=== PATIENT | male | born 1955 | race Caucasian/White ===

== ENCOUNTER 2023-10-26 07:03 | Inpatient (IN) | payer OTHER, SELFPAY ==
--- NOTE | 2023-10-23 14:34 | PTCARENOTE ---
Haydee at 's office was notified of the abnormal portable chest x-ray previously done on 09/25/23.
--- NOTE | 2023-10-24 16:57 | PTCARENOTE ---
Dr García made aware of CXR from 09/25/23, may proceed if medically stable without repeat CXR.
[2023-10-25 07:59] VITALS: BMI 21.3
[2023-10-25 08:44] LABS: Hematocrit 29.1 % (39.0-52.0); Hemoglobin 9.2 g/dL (13.0-18.0); Mean Corp Hgb Conc. 31.6 g/dL (33.0-37.0); Mean Corpuscular Hgb 28.2 pg (27.0-31.0); Mean Corpuscular Volume 89.3 fL (80.0-94.0); Platelet Count 349 10^3/uL (130-400); Red Blood Cell Count 3.26 10^6/uL (4.70-6.10); Red Cell Dist. Width 13.2 % (11.5-14.5); White Blood Cell Count 7.7 10^3/uL (4.8-10.8)
[2023-10-25 08:52] LABS: INR 0.98
[2023-10-25 08:53] LABS: APTT 32.7 Sec (23.4-35.0)
[2023-10-25 09:00] LABS: ALT (SGPT) 18 U/L (0-50); AST (SGOT) 22 U/L (17-59); Albumin 3.5 g/dl (3.5-5.0); Alkaline Phosphatase 96 U/L (38-126); Blood Urea Nitrogen 19 mg/dl (9-20); Calcium 8.7 mg/dl (8.4-10.2); Carbon Dioxide 27 mmol/L (22-30); Chloride 107 mmol/L (98-107); Estimated Creatinine Clearance 70 ml/min; Glucose 89 mg/dl (70-99); Potassium 4.7 mmol/L (3.5-5.1); Sodium 137 mmol/L (135-145); Total Bilirubin 0.3 mg/dl (0.2-1.3); Total Protein 6.3 g/dl (6.3-8.2); eGFR > 60.00
--- NOTE | 2023-10-25 14:06 | PTCARENOTE ---
was notified of hgb 9.2 drawn today; he entered order for type and screen at bedside. Haydee at 's office was also notified of the hgb result.
[2023-10-26] VITALS (16 sets, daily range): BP systolic 111–159; BP diastolic 71–105; BMI 21.3
[2023-10-26] MEDS: NORMOSOL-R 1000 IV (08:30)
[2023-10-26] MEDS: HEPARIN 5000 UNITS SC ×2 (09:29→20:25)
--- NOTE | 2023-10-26 11:36 | W.IMMPOSTOP ---
Surgical Immed Post Op Note
-
Primary Surgeon: Evaristo Crow MD
Assisting Surgeon: Lisa Suarez
Pre-op Diagnosis: Esophageal cancer
Post-op Diagnosis: same
Procedure Performed: Exploratory laparotomy
Anesthesia Type: General
Specimen / Cultures: jejunal nodules
Estimated Blood Loss: 1 cc
Complications: none
Operative Findings: no obvious metastatic disease
[2023-10-26] MEDS: DILAUDID 0.5 MG IV ×2 (12:15→12:54)
--- NOTE | 2023-10-26 13:30 | PTCARENOTE ---
Patient admitted from pacu post exploratory laparotomy and j-tube insertion.Patient with a history of esophageal cancer.He is with significant weight loss as he has not been able to eat.Patient very sleepy upon arrival.Vital signs are
stable.Abdominal dressing is dry and intact.The patient is in his bed with thecall waters.
[2023-10-26] MEDS: MORPHINE SULFATE 2 MG IV ×4 (14:22→22:12)
--- NOTE | 2023-10-26 16:55 | CM ---
Chart reviewed and patient from home with spouse, feeding tube placed, and plan will be to set up tube feeds, bottle caser will await dietary recommendations to send referral. nanny/household manager sent face sheet, and H&P along with surgical procedure
information to [facility].
Plan; To follow up with [facility] for tube feeds for patient at discharge.
[2023-10-26] MEDS: ANCEF 10 IV (17:01)
[2023-10-26] MEDS: FLUSH (NSS) 3 FLUSH IV (17:02)
[2023-10-27] MEDS: MORPHINE SULFATE 2 MG IV ×4 (00:13→08:23)
[2023-10-27] MEDS: ANCEF 10 IV ×2 (02:18→11:14)
[2023-10-27 03:10] VITALS: BP 137/76
[2023-10-27 06:29] LABS: Hemoglobin 8.4 g/dL (13.0-18.0); Mean Corp Hgb Conc. 32.3 g/dL (33.0-37.0); Mean Corpuscular Hgb 28.6 pg (27.0-31.0); Mean Corpuscular Volume 88.4 fL (80.0-94.0); Mean Platelet Volume 10.4 fL (7.4-10.4); Platelet Count 306 10^3/uL (130-400); Red Blood Cell Count 2.94 10^6/uL (4.70-6.10); Red Cell Dist. Width 13.2 % (11.5-14.5); White Blood Cell Count 12.7 10^3/uL (4.8-10.8)
[2023-10-27 06:51] LABS: ALT (SGPT) 16 U/L (0-50); AST (SGOT) 21 U/L (17-59); Albumin 2.9 g/dl (3.5-5.0); Alkaline Phosphatase 82 U/L (38-126); Blood Urea Nitrogen 31 mg/dl (9-20); Calcium 8.5 mg/dl (8.4-10.2); Carbon Dioxide 24 mmol/L (22-30); Chloride 100 mmol/L (98-107); Estimated Creatinine Clearance 70 ml/min; Glucose 131 mg/dl (70-99); Potassium 4.6 mmol/L (3.5-5.1); Sodium 133 mmol/L (135-145); Total Bilirubin 0.4 mg/dl (0.2-1.3); Total Protein 5.7 g/dl (6.3-8.2); eGFR > 60.00
[2023-10-27 07:00] VITALS: BP 127/74
[2023-10-27] MEDS: PEPCID 20 MG IV (08:22)
[2023-10-27] MEDS: NSS (PRESERVATIVE FREE) 8 ML IV (08:22)
[2023-10-27] MEDS: HEPARIN 5000 UNITS SC ×2 (08:28→20:52)
[2023-10-27 11:00] VITALS: BP 127/69
--- NOTE | 2023-10-27 11:59 | W.PN.GENERIC ---
Assessment / Plan
-
S/p Exp Lap and J-tube insertin POD #1
Stable.
The carver hand's input appreciated. The goal is 60CC.
It would be better if he receives intermittent boluses to avoid being tether to the continuous drip. Will ask the carver hand's input.
For now, we will increase his TF by 10cc every six hours.
The patient is anxious to get home
Continue oral intake as tolerate. His oral intake will get worse during radiation therapy due to edema.
OOB and ambulate.
Physician Progress Note
Subjective
c/o incisional pain
Objective
Vital Signs
Temp Pulse Resp BP Pulse Ox
97.8 F 56 14 127/69 99
10/27/23 11:00 10/27/23 11:00 10/27/23 11:00 10/27/23 11:00 10/27/23 11:00
Lab Results
10/27/23 05:01
10/27/23 05:01
Abdomen - soft, ND, incision - CDI
J-tube intact
[2023-10-27] MEDS: TORADOL IV (12:58)
[2023-10-27 15:00] VITALS: BP 130/69
[2023-10-27] MEDS: TORADOL 30 MG IV ×2 (18:06→23:45)
[2023-10-27 23:05] VITALS: BP 138/77
--- NOTE | 2023-10-28 00:12 | PTCARENOTE ---
patient c/o fullness, unfortable bloating. tube feeding currently at 30ml/hr. patient only had one jell-o cup this evening. BS active throughout, abdomen soft but slightly full. per house provider's, Ronald Ham JUNIOR HIGH MATH TEACHER, recommendation; will not
increase tube feed at this time as was expected per order. will cont to monitor closely and reassess increasing tube feed rate later.
--- NOTE | 2023-10-28 04:00 | PTCARENOTE ---
patient more comfortable, no c/o abdominal bloating or nauesa. tube feed rate increased to 40 ml/hr
[2023-10-28] MEDS: TORADOL IV (06:23)
[2023-10-28 07:00] VITALS: BP 176/94
[2023-10-28] MEDS: HEPARIN 5000 UNITS SC ×2 (08:24→20:15)
[2023-10-28] MEDS: PEPCID 20 MG IV (08:27)
[2023-10-28] MEDS: NSS (PRESERVATIVE FREE) 8 ML IV (08:28)
[2023-10-28 09:25] LABS: ALT (SGPT) 14 U/L (0-50); AST (SGOT) 25 U/L (17-59); Albumin 3.3 g/dl (3.5-5.0); Alkaline Phosphatase 84 U/L (38-126); Blood Urea Nitrogen 33 mg/dl (9-20); Calcium 8.3 mg/dl (8.4-10.2); Carbon Dioxide 27 mmol/L (22-30); Chloride 105 mmol/L (98-107); Estimated Creatinine Clearance 80 ml/min; Glucose 104 mg/dl (70-99); Phosphorus 3.4 mg/dl (2.5-4.5); Potassium 4.1 mmol/L (3.5-5.1); Sodium 133 mmol/L (135-145); Total Bilirubin 0.4 mg/dl (0.2-1.3); Total Protein 6.1 g/dl (6.3-8.2); eGFR > 60.00
[2023-10-28] MEDS: TYLENOL ORAL SOLUTION PO ×2 (13:09→20:18)
[2023-10-28] MEDS: COLACE LIQUID 100 MG PO ×2 (13:12→20:15)
[2023-10-28] MEDS: TORADOL 30 MG IV ×2 (13:13→18:35)
[2023-10-28 15:00] VITALS: BP 128/76
[2023-10-28] MEDS: TYLENOL ORAL SOLUTION 650 MG PO ×2 (18:35→22:29)
[2023-10-28] MEDS: MORPHINE SULFATE 2 MG IV (22:27)
[2023-10-28 23:00] VITALS: BP 129/72
[2023-10-29] MEDS: TORADOL 30 MG IV ×2 (00:22→06:14)
[2023-10-29] MEDS: TYLENOL ORAL SOLUTION PO ×3 (03:49→12:18)
[2023-10-29 05:34] LABS: ALT (SGPT) 15 U/L (0-50); AST (SGOT) 29 U/L (17-59); Albumin 3.3 g/dl (3.5-5.0); Alkaline Phosphatase 83 U/L (38-126); Blood Urea Nitrogen 41 mg/dl (9-20); Calcium 8.5 mg/dl (8.4-10.2); Carbon Dioxide 30 mmol/L (22-30); Chloride 103 mmol/L (98-107); Estimated Creatinine Clearance 70 ml/min; Glucose 102 mg/dl (70-99); Magnesium 2.3 mg/dl (1.6-2.3); Phosphorus 4.4 mg/dl (2.5-4.5); Potassium 4.5 mmol/L (3.5-5.1); Sodium 135 mmol/L (135-145); Total Bilirubin 0.3 mg/dl (0.2-1.3); eGFR > 60.00
[2023-10-29 07:31] VITALS: BP 119/77
--- NOTE | 2023-10-29 08:01 | W.PN.GENERIC ---
Addendum entered and electronically signed by Evaristo Crow MD 11/06/23 10:28:
The patient needs aggressive nutritional supports (tube feeds and oral intake) for severe protein calorie malnutrition of chronic illness
Original Note:
Assessment / Plan
-
S/p Exp Lap. insertion of J-tube
Stable
Tolerating TF
DC home today with TF at home (hopefully cycled)
Starting chemo and radiation tomorrow.
Physician Progress Note
Subjective
C/o some incisional pain o/w doing well. Tolerating some po intake and 60 cc of TF.
Objective
Vital Signs
Temp Pulse Resp BP Pulse Ox
98.1 F 90 18 119/77 99
10/29/23 07:31 10/29/23 07:31 10/29/23 07:31 10/29/23 07:31 10/29/23 07:31
Lab Results
10/27/23 05:01
10/29/23 04:29
Abd - soft NT, ND. Incision - DCI
[2023-10-29] MEDS: NSS (PRESERVATIVE FREE) 8 ML IV (08:29)
[2023-10-29] MEDS: PEPCID 20 MG IV (08:30)
[2023-10-29] MEDS: COLACE LIQUID 100 MG PO (08:30)
[2023-10-29] MEDS: HEPARIN 5000 UNITS SC (08:30)
--- NOTE | 2023-10-29 10:45 | CM ---
Addendum entered by Hector Marie 10/29/23 13:01:
Please fax discharge instructions to:
[facility] at [phone]
[facility] at [phone]
Addendum entered by Hector Marie 10/29/23 12:52:
CM confirmed with [facility] team that they will deliver feeding pump and feeding supplies to pt's home today and they cleared pt's discharge from their standpoint.
Discharge order noted. Pt is aware, expressed his agreement with discharge. IMM reviewed placed on chart, pt has a copy.
Please fax discharge instructions to:
[facility] at [phone]
[facility] at [phone]
D/C plan: home with [facility] feeding supply, [facility] and family support. Spouse to transport.
No other discharge needs identified
Original Note:
CM following re: discharge planning.
Reviewed pt's chart, discussed with RN, met with pt.
According to MD pt will be discharged today and pt's first chemo and radiation are scheduled tomorrow. Pt will need nocturnal feed at night.
CM obtained a script and with pt's updated clinical faxed to [facility]. CM spoke to [facility] financial service representative Alma and she confirmed she received all necessary information, requested referral be made to VN and per Alma she feels that pt will have
feeding pump and feeding supplies delivered to pt's home today. Awaiting for final confirmation.
CM discussed with the pt VN options, a list of [facility]N vendors provided and pt preferred [facility]. A referral to [facility] made.
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 Pt reports he spouse will transport home.
D/C plan: home with [facility], [facility] for feeding supply and family support. Spouse to transport at discharge.
CM is awaiting for final confirmation from [facility].
--- NOTE | 2023-10-29 12:06 | W.DS.TRANS ---
DC Summary - Bulk Delivery Driver
-
Discharge Instructions:
Sleep Apnea Risk Low
Discharge Diagnosis/Procedures esophageal cancer
Diet Tube feeding,As tolerated
Activity No strenuous activity
Driving Restrictions No driving for 1 week
Bathing Restrictions OK to Shower
Other Services VN
Instructions:
Stand-Alone Forms:
Changes to Home Medications: No
Discharge Medications:
DC Medications w/original date entered in [facility]
No Meds [No Current Medications] 10/24/23
Home Medication Changes
Pending Results: No
--- NOTE | 2023-10-29 12:14 | PN.CDI ---
CDI
- -
CDI:
Physician Documentation Request
Admit Date: 10/26/23 07:03
Dear Doctor Tristin,
Please review the following and provide your response in the progress notes.
Clinical Indicators:
Hydroelectric Component Machinist, 10/28
#Update due to consult (home TF).
#...Pt admitted s/p exploratory laparotomy and
#...feeding jtube insertion with history of distal esophageal ca,...
#Weight hx listed in 2-2 RD note, with
#...pt having been observed with clavicle protrusion, rib exposure,
#...temporal depression and hollow orbital.
#pt meets ASPEN and AND criteria for severe protein calorie malnutrition of chronic lillness with wt loss, NFPE and decreased intake.
Based on the information, which of the following most accurately represents the patient's nutritional status?
Severe protein calorie malnutrition of chronic illness
Cachexia without malnutrition
Other (please specify)
Benoit Criteria (ACP Hospitalist 2017)
2 or more criteria must be present for either
non severe or severe malnutrition
Note that the criteria differs related to the
presence of an acute or chronic illness
Chronic Illness
Energy Intake Non Severe: <75% for >1 month
Severe: <75% for >1 month
Weight Loss Non Severe: 5% over 1 month
7.5% over 3 months
10% over 6 months
20% over 1 year
Severe: >5% over 1 month
>7.5% over 3 months
>10% over 6 months
>20% over 1 year
Body Fat Non Severe: Mild Loss
Severe: Severe Loss
Muscle Mass Non Severe: Mild Loss
Severe: Severe Loss
Use of terms such as suspected, likely, concern for, or probable (associated with a specific diagnosis that is being evaluated, monitored, or treated as if it exists) are acceptable and can be coded in the inpatient setting, when documented at the
time of discharge.
Thank you,
Cesilia Hall RN BSN CCDS
CDI Specialist
please contact via tiger text
Please use your independent medical judgment in providing your response.
[2023-10-29] MEDS: TORADOL IV (12:18)
--- NOTE | 2023-10-29 12:44 | VNURNOTE ---
Home Health Liaison met with patient and Pam at 1130 to discuss [facility] nurse visits, schedule and homebound status. Patient is agreeable and understands that visits at home will be 2-3 x per week to assess and teach medical management and tube
feeding. Liaison spoke to RN who will review tube feeding procedure prior to discharge home. [facility] contacted and will schedule SN 2/6 in am.
[facility] brochure provided with contact information. Patient is aware that [facility] will contact him for start of care 10/30.
[facility] referral completed in [facility].
has arranged for tube feeding & supplies to be delivered today from [facility].
--- NOTE | 2023-10-29 14:52 | PTCARENOTE ---
Tube feeding teaching provided. Pt and verbalized understanding. All questions answered.
== END 2023-10-29 15:18 | disposition home or self-care (01) | DRG 356 ==
LOC: 2 SOUTH 07:03
PROVIDERS: ADMITTING PHYSICIAN Surgery; FAMILY PHYSICIAN Internal Medicine
PROC: 0WJG0ZZ Inspection of Peritoneal Cavity, Open Approach (ICD-10-PCS; 2023-10-26)
PROC: 07BB0ZX Excision of Mesenteric Lymphatic, Open Approach, Diagnostic (ICD-10-PCS; 2023-10-26)
PROC: 0DHA0UZ Insertion of Feeding Device into Jejunum, Open Approach (ICD-10-PCS; 2023-10-26)
DX: C15.5 Malignant neoplasm of lower third of esophagus (principal); E43 Unspecified severe protein-calorie malnutrition; I10 Essential (primary) hypertension; I45.10 Unspecified right bundle-branch block; Z92.3 Personal history of irradiation; Z68.21 Body mass index [BMI] 21.0-21.9, adult
CPT/HCPCS: 88305; 88332; 36415; 80053; 83735; 84100; 85027; 85610; 85730; 86850; 86900; 86901; 88331; 88341; 88342; 93005; 99406

== ENCOUNTER 2023-11-09 09:02 | Outpatient (RCR) | payer OTHER, SELFPAY ==
[2023-11-02 09:53] VITALS: BP 116/64
[2023-11-02 10:18] VITALS: BP 116/64
[2023-11-02 10:35] VITALS: BP 123/71
[2023-11-02] MEDS: NSS 250 IV ×2 (12:35→13:00)
[2023-11-02 12:36] VITALS: BP 120/81
[2023-11-02] MEDS: DECADRON 50.7999999999999972 MG IV (13:27)
[2023-11-02] MEDS: ALOXI 5 MG IV (13:27)
--- NOTE | 2023-11-02 15:29 | PTCARENOTE ---
Pt arrived with complaints of nausea and dizziness, SEGMENTAL PAVER INSTALLER Nadine notified. Pt tolerated blood transfusion. Nadine Orozco Motorcycle Subassembly Repairer in to assess patient, NSS 250ml x2 given, aloxi 0.25mg IV and decadron 8mg IV given. Pt re-educated on antiemetics and
chemotherapy side effects. Family educated. Dr. Jin notified.
--- NOTE | 2023-11-06 08:29 | NUT.ASMTR ---
[facility] Nutrition Assess/Interview
- Patient History
Visit Type: Initial
Diagnosis / Referral:
Patient Phone: Use [email or web address] instead
Referring Physician:
Referral Source: [facility]
Reason for Referral:
Diagnosis:
ESOPHAGEAL CANCER, WT LOSS
Past Medical History: Esophageal Cancer
48 Hour Diet Recall:
Day 1
Breakfast:
Snack 1:
Lunch:
Snack 2:
Dinner:
Snack 3:
Day 2
Breakfast:
Snack 1:
Lunch:
Snack 2:
Dinner:
Snack 3:
- Anthropometrics
Height in Inches: 67
Height in Centimeters: 170.18
Stated weight in lbs: 125
Stated weight in Kilograms: 56.69
Usual weight in lbs: 145
Usual weight in kilograms: 65.77
BMI: 19.6
Unintentional weight loss in lbs: 20
Weight change happened over the last (in weeks): 26
Energy needs in KCAL: 1994
Protein needs in grams: 86
Fluid requirements in mls: 1 ml/kcal or per MD
- Labs and Medication
No Meds [No Current Medications] 10/24/23
- Patient Nutrition
Food intake less than normal: Little Solid Food, Other (Enteral feeds)
Symptoms: Nausea, Problems Swallowing, Constipation
- Assessment
Patient / Caregiver Interview: Nutrition consulted for newly diagnosed Stage III esophageal cancer, new to TF's �Met with pt to review TF administration and tolerance. Pt reports a 20# wt loss in the past 6 months. Pt was hospitalized for j tube
placement and discharged on 10/31/23; TF orders at discharge:�Jevity 1.5 at 10ml/hr via pump and progress by 20ml every 8-10hours as tolerated to goal rate of 60ml/hr�continuous.�At 60ml/hr tf will provide 1980 calories (99.5% calorie needs), 84 gm
protein (99% protein needs), 1003ml free water. Additional water flush of 985ml in 24 hours to meet 100% fluid needs). Pt reports that he has been administering overnight Jevity 1.5 80 ml/hr x 13 hours providing 1560 kcal meeting 79% calorie needs.
Pt reports that he is nauseous due to the smell of the formula. Pt also states that he has been experiencing panic attacks, dizziness, rapid heart rate and insomnia. �Pt also reports constipation but states that he had a BM yesterday. �Pt continues
to consume via po intake small portions of�hamburger, soft tacos, cinnamon rolls, but could not tolerate water, ice cream, pudding, steak or pork chops. Pt admits that the insomnia is having a significant impact on his state of well being, making it
difficult for him to tolerate chemotherapy side effects. �
Assessment / Nutrition Diagnosis: Inadequate enteral nutrition administration related to treatment and TF side effects as evidenced by pt only meeting 79% of his energy needs via feeding tube.
Nutrition Interventions / Education provided:
RD consulted [place] OPHTHALMOLOGY SURGICAL TECHNICIAN to address anxiety and insomnia. OPHTHALMOLOGY SURGICAL TECHNICIAN prescribed trazadone 50mg nightly; pt can�increase to 100mg nightly after 4 days if not effective. RD reviewed the importance of staying at a 45 degreee angle during TF administration and one
hour post administration. RD confirmed that he is receiving hourly water flushes via feeding pump. RD will follow-up with pt in one week to confirm that pt is meeting 100% TF goal rate and tolerating TF's; given pt's current anxiety and chemotherapy
side effects, RD deemed it appropriate to postpone discussing an increase in TF administration with pt at this meeting.�
[2023-11-08 09:39] LABS: % Basophils 0.4 % (0-2); % Eosinophils 2.1 % (0-6); % Immature Granulocytes 0.6 % (0-0.5); % Lymphocytes 5.7 % (20.5-51.1); % Monocytes 7.4 % (1.7-9.3); % Neutrophils 83.8 % (42.2-75.2); Absolute Eosinophils 0.2 10^3/uL (0-0.7); Absolute Lymphocytes 0.4 10^3/uL (1.2-3.4); Absolute Monocytes 0.5 10^3/uL (0.1-0.6); Mean Corp Hgb Conc. 31.3 g/dL (33.0-37.0); Mean Corpuscular Hgb 28.9 pg (27.0-31.0); Mean Corpuscular Volume 92.4 fL (80.0-94.0); Platelet Count 406 10^3/uL (130-400); Red Blood Cell Count 2.25 10^6/uL (4.70-6.10); Red Cell Dist. Width 15.6 % (11.5-14.5); White Blood Cell Count 7.2 10^3/uL (4.8-10.8)
[2023-11-08 09:40] LABS: Hematocrit 20.8 % (39.0-52.0); Hemoglobin 6.5 g/dL (13.0-18.0)
[2023-11-09] VITALS (7 sets, daily range): BP systolic 97–129; BP diastolic 62–78
== END 2023-11-22 23:59 | disposition home or self-care (01) ==
LOC: OID 09:02
PROVIDERS: ATTENDING PHYSICIAN Internal Medicine Hematology & Oncology; FAMILY PHYSICIAN Internal Medicine
DX: C15.5 Malignant neoplasm of lower third of esophagus (principal)
CPT/HCPCS: 36415; 36430; 85025; 86850; 86900; 86901; 86920; 96361; 96365; 96375; J2469; P9016

== ENCOUNTER → 2023-11-28 11:43 | Outpatient (REF) | payer OTHER, SELFPAY ==
[2023-11-28 13:05] LABS: AST (SGOT) 25 U/L (17-59); Albumin 3.6 g/dl (3.5-5.0); Blood Urea Nitrogen 18 mg/dl (9-20); Carbon Dioxide 28 mmol/L (22-30); Glucose 112 mg/dl (70-99); Total Bilirubin 0.4 mg/dl (0.2-1.3); Total Protein 6.2 g/dl (6.3-8.2); eGFR > 60.00
[2023-11-28 13:21] LABS: ALT (SGPT) 21 U/L (0-50); Alkaline Phosphatase 69 U/L (38-126); Calcium 8.5 mg/dl (8.4-10.2); Chloride 102 mmol/L (98-107); Potassium 4.6 mmol/L (3.5-5.1); Sodium 134 mmol/L (135-145)
== END ==
LOC: OIDL 11:43
PROVIDERS: ATTENDING PHYSICIAN Internal Medicine Hematology & Oncology
DX: C15.5 Malignant neoplasm of lower third of esophagus (principal); Z72.0 Tobacco use; K59.00 Constipation, unspecified
CPT/HCPCS: 80053

== ENCOUNTER → 2023-12-14 10:59 | Outpatient (REF) | payer OTHER, SELFPAY | LOC: HWRAD 10:59 | PROVIDERS: ATTENDING PHYSICIAN Nurse Practitioner Primary Care; FAMILY PHYSICIAN Nurse Practitioner Adult Health | DX: C15.5 Malignant neoplasm of lower third of esophagus (principal); Z72.0 Tobacco use; K59.00 Constipation, unspecified; D50.8 Other iron deficiency anemias | CPT/HCPCS: 71046 ==

== ENCOUNTER → 2024-01-04 07:11 | Outpatient (REF) | payer OTHER, SELFPAY | LOC: MRI 07:11 | PROVIDERS: ATTENDING PHYSICIAN Nurse Practitioner Adult Health; OTHER PHYSICIAN Nurse Practitioner Primary Care | DX: M54.16 Radiculopathy, lumbar region (principal); R20.0 Anesthesia of skin; J45.20 Mild intermittent asthma, uncomplicated; C15.9 Malignant neoplasm of esophagus, unspecified | CPT/HCPCS: 72158 ==

== ENCOUNTER → 2024-01-10 09:09 | Outpatient (REF) | payer OTHER, SELFPAY | LOC: PET 09:09 | PROVIDERS: ATTENDING PHYSICIAN Internal Medicine Hematology & Oncology | DX: C15.5 Malignant neoplasm of lower third of esophagus (principal) | CPT/HCPCS: 78815; A9552 ==

== ENCOUNTER → 2024-01-11 09:10 | Outpatient (REF) | payer OTHER, SELFPAY | LOC: RAD 09:10 | PROVIDERS: ATTENDING PHYSICIAN Nurse Practitioner Adult Health | DX: M51.9 Unspecified thoracic, thoracolumbar and lumbosacral intervertebral disc disorder (principal); C15.9 Malignant neoplasm of esophagus, unspecified; G54.3 Thoracic root disorders, not elsewhere classified | CPT/HCPCS: 78803; A9503 ==

== ENCOUNTER → 2024-01-23 17:14 | Outpatient (REF) | payer OTHER, SELFPAY ==
[2024-01-23 18:08] LABS: Potassium 4.6 mmol/L (3.5-5.1)
== END ==
LOC: REG 17:14
PROVIDERS: ATTENDING PHYSICIAN Nurse Practitioner Adult Health
DX: E78.5 Hyperlipidemia, unspecified (principal)
CPT/HCPCS: 36415; 84132

== ENCOUNTER 2024-01-25 06:15 | Inpatient (IN) | payer OTHER, SELFPAY ==
[2024-01-22 08:38] VITALS: BMI 22.6
[2024-01-22 09:47] LABS: Hematocrit 35.6 % (39.0-52.0); Hemoglobin 11.4 g/dL (13.0-18.0); Mean Corpuscular Hgb 32.2 pg (27.0-31.0); Mean Corpuscular Volume 100.6 fL (80.0-94.0); Platelet Count 187 10^3/uL (130-400); Red Blood Cell Count 3.54 10^6/uL (4.70-6.10); Red Cell Dist. Width 16.8 % (11.5-14.5); White Blood Cell Count 4.6 10^3/uL (4.8-10.8)
[2024-01-22 10:09] LABS: INR 1.01; PT 13.1 Sec (11.4-14.6)
[2024-01-22 10:20] LABS: ALT (SGPT) 68 U/L (0-50); AST (SGOT) 46 U/L (17-59); Albumin 3.9 g/dl (3.5-5.0); Alkaline Phosphatase 90 U/L (38-126); Blood Urea Nitrogen 28 mg/dl (9-20); Calcium 9.4 mg/dl (8.4-10.2); Carbon Dioxide 30 mmol/L (22-30); Chloride 105 mmol/L (98-107); Estimated Creatinine Clearance 87 ml/min; Glucose 94 mg/dl (70-99); Sodium 139 mmol/L (135-145); Total Bilirubin 0.2 mg/dl (0.2-1.3); Total Protein 6.7 g/dl (6.3-8.2); eGFR > 60.00
--- NOTE | 2024-01-22 11:07 | PTCARENOTE ---
Haydee in Dr Crow's office made aware of K 6.0.
--- NOTE | 2024-01-24 09:32 | PTCARENOTE ---
Per medical clearance from 01/22, repeat potassium 4.6.
[2024-01-25] VITALS (15 sets, daily range): BP systolic 124–181; BP diastolic 87–114; BMI 22.6
[2024-01-25] MEDS: HEPARIN 5000 UNITS SC (07:23)
[2024-01-25] MEDS: NORMOSOL-R 1000 IV ×2 (07:38→16:32)
[2024-01-25 13:15] LABS: B.E. - POC -0.5 mmol/L; Glucose - POC 179 mg/dl (65-99); HCO3 - POC 25 mmol/L (21-29); Hematocrit - POC 37 % PCV (42-52); Hemodilution- POC Yes; Hemoglobin Calculated - POC 12.5; Lactate - POC 1.48 mmol/L (0.36-0.75); O2 Saturation %Calculated-POC 99.8 5 (92-96); PCO2 - POC 41 mmHg (35-45); PO2 - POC 218 mmHg (80-100); Potassium - POC 3.8 mmol/L (3.6-5.0); Sodium - POC 141 mmol/L (135-145); pH - POC 7.39 (7.35-7.45)
[2024-01-25] MEDS: DILAUDID 0.25 MG IV ×2 (15:39→15:47)
[2024-01-25] MEDS: DILAUDID 0.5 MG IV ×2 (16:00→20:01)
--- NOTE | 2024-01-25 16:37 | HPS.HSE ---
Family Physician
-
Family Physician: Pavithra Thornton
Chief Complaint
-
Status post esophagectomy
History of Present Illness
Patient is a 68 years old male with esophageal adenocarcinoma, well-differentiated and diagnosed August 2023.
Esophageal adenocarcinoma clinically and radiologically limited to esophagus
Patient underwent PEG tube placement and chemoradiation treatment.
Patient underwent uneventful esophagectomy today with estimated blood loss 150 mL.
Extubated successfully with stable respiratory and hemodynamic status.
NG tube being replaced to surpass anastomosis
Admit to ICU.
Medical History
Past Medical History
Past Medical History: Reports Cancer (Esophageal carcinoma) and HTN
Past Surgical History: Reports Other (PEG tube placement)
Social History
Tobacco: Former Smoker
Family History
Family History: Not pertinent
Allergies / Home Medications
Allergies reflects when Allergies were last updated in Comic Reply.
Home Medications with original date entered in Comic Reply
Allergy/Medication List:
Allergies
Allergy/AdvReac Type Severity Reaction Status Date / Time
No Known Allergies Allergy Verified 01/25/24 07:19
Home Medications
No Meds [No Current Medications] 01/22/24
Review of Systems
-
Unable to obtain full review of systems at this time due to: Other (Somnolent recovering from anesthesia.)
Physical Exam
Vital Signs
Vital Signs
Temp Pulse Resp BP Pulse Ox
97.9 F 89 17 154/113 92
01/25/24 16:00 01/25/24 16:00 01/25/24 16:00 01/25/24 16:00 01/25/24 16:00
Physical Exam
General: Well Developed, Well Nourished and No Apparent Distress
HEENT: NormoCephalic, Moist mucous membranes and Atraumatic
Respiratory: Clear
Cardiac: S1/S2 and Regular Rhythm; No Murmur or Rub
GI: Soft, Non Tender, Non Distended, Normal Bowel Sounds and Other (NG tube in place); No Organomegaly
Rectal: Deferred by Provider
Musculoskeletal: No Clubbing, No Cyanosis and No Edema
Skin: No Rash
Neuro: Other (Somnolent recovering from anesthesia)
Laboratory Results
-
01/22/24 08:23
01/22/24 08:23
Laboratory Results
PT 13.1 Sec (11.4-14.6) 01/22/24 08:
INR 1.01 01/22/24 08:
APTT 30.0 Sec (23.4-35.0) 01/22/24 08:23
Total Bilirubin 0.2 mg/dl (0.2-1.3) 01/22/24 08:23
AST 46 U/L (17-59) 01/22/24 08:23
ALT 68 U/L (0-50) H 01/22/24 08:23
Alkaline Phosphatase 90 U/L (38-126) 01/22/24 08:23
Impression/Plan
-
IMPRESSION:
Status post esophagectomy.
Esophageal adenocarcinoma, well-differentiated, clinically and radiologically limited to esophagus.
Status post chemoradiation treatment.
PEG tube in place.
Tobacco use disorder
Hypertension by history not on medications prior to presentation
RBBB
Dyslipidemia
PLAN:
Admit to ICU for close monitoring
NG tube in place to bypass anastomosis. Orders not to manipulate.
Aspiration precautions.
Nutrition team consult for PEG tube feeding initiation.
Monitor electrolytes.
Monitor CBC.
Adjust analgesic regimen with anesthesia recovery
DVT prophylaxis: Mechanical
Full code
--- NOTE | 2024-01-25 16:42 | CON.INTV ---
Consultation
Consultation Request
Date/Time Consultation Requested: 01/25/2024
Date/Time Consultation Performed: 01/25/2024
Requesting Provider: Dr. Carolina
Performing Provider: Dr. Jeremiah Corbin
Reason for Consultation: Status post
Medical History
-
History of Present Illness:
68-year-old man with distal esophageal adenocarcinoma who has recently finish neoadjuvant chemotherapy. Underwent esophagectomy by Dr. Crow on 01/25/2024.
Records reviewed, patient completed radiation therapy in November 2023.
She is currently in the intensive care unit.
Extubated.
Past Medical History
Past Medical History: Other (See assessment and plan section)
Social History
Tobacco: Non-smoker
Alcohol: None
Drug: None
Family History
Family History: Reviewed & Not Pertinent
Allergies / Home Medications
Allergies
Allergy/AdvReac Type Severity Reaction Status Date / Time
No Known Allergies Allergy Verified 01/25/24 07:19
Home Medications
�Medication �Instructions �Recorded �Confirmed �Last Taken �Type
No Meds [No Current Medications] 01/22/24 01/25/24 Unknown History
Review of Systems
-
History Source: Patient
All other systems: Negative unless noted
Vitals / Labs / Diagnostic Testing
Vital Signs
Temp Pulse Resp BP Pulse Ox
97.9 F 89 17 154/113 92
01/25/24 16:00 01/25/24 16:00 01/25/24 16:00 01/25/24 16:00 01/25/24 16:00
Lab Data
01/22/24 08:23
01/22/24 08:23
Diagnostic Testing:
Physical Exam
-
HEENT: Normocephalic
Cardiovascular: S1/S2
Respiratory: Clear and Non-Labored Respirations
GI: Soft, Non Distended and Other (NG tube in place)
Neurology: Other (Somnolent, arousable. Following commands.)
General: Respiratory Distress (n)
Assessment
-
Status post transhiatal esophagectomy
Conditions present prior admission:
Esophageal cancer status post radiation and neoadjuvant chemotherapy
GERD
Hypertension
Incomplete RBBB
Plan recommendations:
Postoperative ICU care
Will check CBC and BMP
Start gentle IV fluids
-
Analgesia with narcotics as needed-monitor respiratory status closely
bedrest for now.
-
Monitor hemodynamics.
-
N.p.o.-defer to surgery
NG tube in place, only to be managed by surgery.
-
DVT prophylaxis with SCDs, pharmacological prophylaxis when cleared by surgery.
--- NOTE | 2024-01-25 16:48 | PTCARENOTE ---
Dr Crow aware of CXR resuts and that there is no drainage from the NGT
--- NOTE | 2024-01-25 17:04 | W.IMMPOSTOP ---
Surgical Immed Post Op Note
-
Primary Surgeon: Evaristo Crow MD
Pre-op Diagnosis: Esophageal Cancer
Post-op Diagnosis: Esophageal Cancer
Procedure Performed: Transhiatal esophagectomy
Anesthesia Type: GET
Specimen / Cultures: Esophagus with proximal stomach
Estimated Blood Loss: 150 cc
Complications: None
Operative Findings: Distal esophageal tumor
[2024-01-25] MEDS: D5/0.45%NSS with KCL 10 MEQ 1000 IV (17:09)
--- NOTE | 2024-01-25 17:17 | PTCARENOTE ---
Pt admitted to ICU bed 3358 from PACU. Pt lethargic. Follows simple commands and answers questions at times. Unable to stay awake for admission questions at this time. States, 'It hurts' but falls asleep quickly and respiratory rate 8-10 while
asleep therefore PRN Dilaudid not given.
Sinus rhythm with BBB. Left radial A-line intact.
97% on 3L NC. Lungs CTA.
Abdomen soft/tender. NGT to LIS. J-tube present.
Gonzalez draining clear yellow
Left neck and abdominal dressing C/D/I
[2024-01-25 17:22] LABS: % Basophils 0.2 % (0-2); % Eosinophils 0.1 % (0-6); % Immature Granulocytes 0.2 % (0-0.5); % Lymphocytes 2.2 % (20.5-51.1); % Monocytes 5.6 % (1.7-9.3); % Neutrophils 91.7 % (42.2-75.2); Absolute Lymphocytes 0.2 10^3/uL (1.2-3.4); Absolute Monocytes 0.6 10^3/uL (0.1-0.6); Absolute Neutrophils 9.3 10^3/uL (1.4-6.5); Hematocrit 32.8 % (39.0-52.0); Hemoglobin 11.2 g/dL (13.0-18.0); Mean Corp Hgb Conc. 34.1 g/dL (33.0-37.0); Mean Corpuscular Hgb 32.4 pg (27.0-31.0); Mean Corpuscular Volume 94.8 fL (80.0-94.0); Mean Platelet Volume 10.7 fL (7.4-10.4); Nucleated Red Blood Cells % 0 % (-); Platelet Count 191 10^3/uL (130-400); Red Blood Cell Count 3.46 10^6/uL (4.70-6.10); Red Cell Dist. Width 15.9 % (11.5-14.5); White Blood Cell Count 10.1 10^3/uL (4.8-10.8)
[2024-01-25 18:26] LABS: Blood Urea Nitrogen 24 mg/dl (9-20); Calcium 8.4 mg/dl (8.4-10.2); Carbon Dioxide 22 mmol/L (22-30); Chloride 103 mmol/L (98-107); Estimated Creatinine Clearance 76 ml/min; Glucose 186 mg/dl (70-99); Magnesium 2.1 mg/dl (1.6-2.3); Potassium 4.4 mmol/L (3.5-5.1); Sodium 136 mmol/L (135-145); eGFR > 60.00
[2024-01-25] MEDS: OFIRMEV 100 IV (18:38)
[2024-01-25] MEDS: VALIUM INJECTION 2 MG IV ×2 (19:00→21:26)
[2024-01-25] MEDS: APRESOLINE 10 MG IV (20:16)
--- NOTE | 2024-01-25 20:45 | PTCARENOTE ---
Rec'd care of patient at 1910. Patient oob in chair. Alert and oriented. Afib with BBB and PVCs on tele monitor. Trace anasarca. +1 edema in b/l LE. Palpable pulses. Pulse ox 99-100% on 4L nc. Lung sounds diminished in b/l base. Moist, productive
cough. Utilizing yankauer. +BS. No BM. Will attempt to use bedside commode prior to going to bed. Voiding frequent, small amounts in urinal. Scrotal edema present. Sacral foam c/d/i. VSS. No complaints. RIJ triple lumen cath capped.
[2024-01-25] MEDS: ZOFRAN 4 MG IV (21:18)
[2024-01-25] MEDS: LOPRESSOR 5 MG IV (22:13)
--- NOTE | 2024-01-25 22:30 | PTCARENOTE ---
Rec'd care of patient at 190. Patient in bed. Left neck mae drain dressing intact. NGT to low intermittent suction. Small amount of bloody output. Patient c/o back and abdominal pain. ABP 180-190's/90-100's. WINDER FIXER at bedside prior to shift change
to assess patient. Orders placed for 2mg Valium and 0.5 mg Dilaudid (see MAR). Patient experiencing temporary relief. BP remaining elevated despite pain under better control. Order for 10mg Hydralazine IV placed and administered at 2015. Around
2114, patient increasingly anxious and restless in bed. C/o abdominal discomfort and nausea. BP and HR elevated. Zofran and additional 2mg Valium administered. Emotional support and reassurance provided. Once patient resting comfortably and pain
controlled, BP 170/90's HR 90's. Order for 5mg IV Lopressor obtained. VSS. Full assessment and care as charted on worklist.
[2024-01-25] MEDS: DILAUDID 1 MG IV (23:12)
[2024-01-26] VITALS (14 sets, daily range): BP systolic 98–156; BP diastolic 67–99; BMI 22.9
--- NOTE | 2024-01-26 00:31 | PTCARENOTE ---
Patient resting comfortably s/p 1mg IV Dilaudid at 2312. VSS. No changes in assessment.
[2024-01-26] MEDS: OFIRMEV 100 IV ×3 (01:37→15:35)
[2024-01-26] MEDS: APRESOLINE 10 MG IV (01:37)
[2024-01-26] MEDS: D5/0.45%NSS with KCL 10 MEQ 1000 IV (02:56)
[2024-01-26] MEDS: DILAUDID 1 MG IV ×6 (03:02→20:03)
[2024-01-26 03:41] LABS: % Basophils 0.2 % (0-2); % Immature Granulocytes 0.3 % (0-0.5); % Lymphocytes 2.5 % (20.5-51.1); % Monocytes 7.7 % (1.7-9.3); % Neutrophils 89.3 % (42.2-75.2); Absolute Lymphocytes 0.3 10^3/uL (1.2-3.4); Absolute Monocytes 0.8 10^3/uL (0.1-0.6); Absolute Neutrophils 9.8 10^3/uL (1.4-6.5); Hematocrit 31.2 % (39.0-52.0); Hemoglobin 10.7 g/dL (13.0-18.0); Mean Corp Hgb Conc. 34.3 g/dL (33.0-37.0); Mean Corpuscular Hgb 32.2 pg (27.0-31.0); Mean Platelet Volume 10.9 fL (7.4-10.4); Nucleated Red Blood Cells % 0 % (-); Platelet Count 189 10^3/uL (130-400); Red Blood Cell Count 3.32 10^6/uL (4.70-6.10); Red Cell Dist. Width 15.9 % (11.5-14.5); White Blood Cell Count 10.9 10^3/uL (4.8-10.8)
--- NOTE | 2024-01-26 03:41 | PTCARENOTE ---
Pt reassessed. C/o abdominal pain. PRN 1mg Dilaudid administered. No other changes. VSS. AM labs sent.
[2024-01-26 03:58] LABS: APTT 33.2 Sec (23.4-35.0); INR 1.09; PT 13.9 Sec (11.4-14.6)
[2024-01-26 04:09] LABS: Blood Urea Nitrogen 22 mg/dl (9-20); Calcium 8.3 mg/dl (8.4-10.2); Carbon Dioxide 24 mmol/L (22-30); Chloride 103 mmol/L (98-107); Estimated Creatinine Clearance 101 ml/min; Glucose 181 mg/dl (70-99); Phosphorus 3.5 mg/dl (2.5-4.5); Potassium 4.6 mmol/L (3.5-5.1); Sodium 132 mmol/L (135-145); eGFR > 60.00
[2024-01-26] MEDS: ZOFRAN 4 MG IV ×2 (08:18→17:00)
--- NOTE | 2024-01-26 08:21 | W.PN.HOSP.TC ---
Today's Communication/Plan
-
see A/P
Assessment / Plan
Assessment / Plan
HPI: 68 years old male with esophageal adenocarcinoma, well-differentiated and diagnosed August 2023.
Esophageal adenocarcinoma clinically and radiologically limited to esophagus
Patient underwent PEG tube placement and chemoradiation treatment.
Patient underwent uneventful esophagectomy on 01/24 with estimated blood loss 150 mL.
Extubated successfully with stable respiratory and hemodynamic status.
NG tube being replaced to surpass anastomosis
Admit to ICU for close monitoring post op.
Hospitalist service asked to admit due to ICU level of care.
IMPRESSION:
Esophageal adenocarcinoma, well-differentiated, clinically and radiologically limited to esophagus.
Recently finished neoadjuvant chemotherapy. Underwent esophagectomy by Dr. Crow on 01/25/[address]
Tobacco use disorder
Hypertension by history not on medications prior to presentation
RBBB
Dyslipidemia
PLAN:
Admit to ICU for close monitoring
NG tube in place to bypass anastomosis. Orders not to manipulate.
Aspiration precautions.
Nutrition team consult for PEG tube feeding initiation. Will start with empiric Jevity 1.5 at 10 cc/hr and goal at 30 cc/hr
Monitor electrolytes.
Monitor CBC.
Adjust analgesic regimen with anesthesia recovery, currently on IV Dilaudid PRN
DVT prophylaxis: Mechanical
Full code
LISA Crow
Anticipated Discharge: > 48 hours
Subjective/Interval History
-
Date of Service: January 26, 2024
Objective Data
-
Labs:
Laboratory Results
01/26/24
03:16
WBC 10.9 H
Hgb 10.7 L
Hct 31.2 L
Plt Count 189
PT 13.9
INR 1.09
APTT 33.2
Sodium 132 L
Potassium 4.6
Chloride 103
Carbon Dioxide 24
BUN 22 H
Creatinine 0.6 L
Glucose 181 H
Calcium 8.3 L
Vital Signs:
Vital Signs
Temp Pulse Resp BP Pulse Ox
36.7 C 92 9 120/86 100
01/26/24 07:15 01/26/24 06:30 01/26/24 06:30 01/26/24 06:00 01/26/24 06:30
I&O
01/25/24 01/26/24 01/27/24
06:59 06:59 06:59
Intake Total 1400 / 1400
Output Total 1550 / 1550
Balance -150 / -150
Review of Systems
-
Constitutional: Reports Other (abdominal pain)
Physical Exam
-
General: Well Developed, Conversant and Appears Chronically Ill
HEENT: Normocephalic, Atraumatic, Nose Appears Normal, Ears Appear Normal and Oxygen (2L NC)
Respiratory: Clear to Auscultation and Non Labored Respirations; Negative Accessory Resp Muscle Use
Cardiac: Regular Rhythm and S1/S2
GI: Tender, Peg Tube and Other (in wound dressing)
Skin: Warm and Dry
Neuro: Awake and Alert
Psych: Calm and Intact Judgement/Insight
Data Reviewed
-
Labs: Labs Reviewed by me
--- NOTE | 2024-01-26 09:23 | W.PN.INTV ---
Today's Communication / Plan
Recommendations
Will discuss with pharmacy Dilaudid REFERRAL COORDINATOR
Gentle IV fluids
Continue monitor daily electrolytes and hemoglobin
Assessment
-
Status post transhiatal esophagectomy
Conditions present prior admission:
Esophageal cancer status post radiation and neoadjuvant chemotherapy
GERD
Hypertension
Incomplete RBBB
Plan recommendations:
Postoperative day 1
Continue complaining of significant amount of postoperative pain despite of frequent Dilaudid and IV Tylenol.
Will discuss with pharmacy whether he Dilaudid REFERRAL COORDINATOR will be helpful.
-
Monitor respiratory status closely.
Complaining of coughing and phlegm production-he quit smoking 3 months ago.
Not bronchospastic on exam
Not requiring oxygen
Continue with analgesia
Hold on nebulizers
-
Bedrest
Incentive spirometry when able, unable to perform due to pain.
-
Hemodynamically stable
Discontinue arterial line
-
N.p.o.-defer to surgery
NG tube in place, only to be managed by surgery.
G-tube in place, defer when to start tube feedings to surgery.
-
DVT prophylaxis with SCDs, pharmacological prophylaxis when cleared by surgery.
-
Subjective Dataa
Subjective Data
Date of Service:
Date of Service: January 26, 2024
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
Review of Systems
General: Pain
Cardiopulmonary: Dyspnea (n)
GI: Abdominal Pain (n) and Nausea (n)
Neuro: Headache (n)
Objective Data
Data Reviewed
Vital Signs / I&O / Oxygen:
Vital Signs
Temp Pulse Resp BP Pulse Ox
98.0 F 92 9 120/86 100
01/26/24 07:15 01/26/24 06:30 01/26/24 06:30 01/26/24 06:00 01/26/24 06:30
Intake and Output
01/25/24 01/26/24 01/27/24
06:59 06:59 06:59
Intake Total 1400 / 1400
Output Total 1550 / 1550
Balance -150 / -150
SaO2 100
Nasal Cannula flow liters per 2
minute
Physical Exam
General: Respiratory Distress (n) and Comfortable
HEENT: Normocephalic
Cardiovascular: S1-S2
Respiratory: Clear and Non-Labored Respirations
GI: Soft, Non Distended and Other (NG tube in place)
Neurology: Awake, Alert and Oriented
Skin: Warm
Labs/Micro/Reports
Lab Data
01/26/24 03:16
01/26/24 03:16
Laboratory Results
01/26/24
03:16
PT 13.9
INR 1.09
APTT 33.2
--- NOTE | 2024-01-26 10:25 | W.PN.GENERIC ---
Assessment / Plan
-
S/p transhiatal esophagectomy POD #1
Stable.
Start tube feeds
Continue strict NPO and NGT
Will start Toradol for better pain control
OOB to chair, Encourage pulmonary toilet. Needs IS
High risk for atrial fibrillation
Will observe him in the ICU another day, possible transfer tomorrow
Await path.
Physician Progress Note
Subjective
C/o incisional pain.
Objective
Vital Signs
Temp Pulse Resp BP Pulse Ox
98.0 F 92 9 120/86 100
01/26/24 07:15 01/26/24 06:30 01/26/24 06:30 01/26/24 06:00 01/26/24 06:30
Lab Results
01/26/24 03:16
01/26/24 03:16
Abdomen - soft, ND. Dsg - intact
Cor - RRR
Pul - dec bilat
[2024-01-26] MEDS: TORADOL 15 MG IV ×3 (11:05→23:28)
--- NOTE | 2024-01-26 12:47 | PTCARENOTE ---
Issues with pain control this am. New order for IV Toradol. Med given. Pt appears to be resting comfortably at this time. Pt given hug me pillow.
Sinus rhythm. BP stable via a-line
Respirations shallow. Lungs diminished. Encouraged cough and DB with [id number]. Instructed on I/S
Zofran given this am for c/o nausea. NGT to LIS. scant bloody output in tubing. Tube feeds started via J-tube. +BS. Pt denies flatus.
Gonzalez draining clear yellow urine.
abdominal and neck dressings intact
--- NOTE | 2024-01-26 13:37 | OR.RPT ---
Operative Report
Operative Report
Patient Name: Toñito Mccray
Date of : 1955
Date of Operation: January 25, 2024
Preoperative Diagnosis: Esophagus Ca lower third - C155
Postoperative Diagnosis: Same
Surgeon: Evaristo Crow M.D.
Operation: Transhiatal Esophagectomy - 37987
Anesthesia: GET
Estimated Blood Loss: 150 cc
Drains: Cary drain in the neck
Specimen: Esophagus with the proximal stomach
Complications: None
Procedure:
The patient was taken to the operating room and placed in the usual supine position. After adequate endotracheal anesthesia was established, the patient was placed in the right decubitus position with the left chest up. The patient was prepped and
draped in the usual sterile fashion. The patient was taken to the operating room and placed in the supine position. After induction of satisfactory general endotracheal anesthesia, the skin of the neck, chest, and abdomen was prepared and draped.
The peritoneal cavity was entered through a supraumbilical midline incision.
The triangular ligament of the liver was divided with cautery, and the left lobe of the liver was padded and retracted to the right. An exploration of the abdomen was performed and found no evidence of metastatic disease. After identifying the
course of the right gastroepiploic artery and beginning at the midpoint of the greater curvature of the stomach, the greater omentum was from the stomach to the level of the pylorus using Ligasure. The left gastroepiploic artery and short
gastric vessels were then divided in the same manner. The spleen was preserved without injuring it.
The peritoneum overlying the esophageal hiatus was incised. The gastrohepatic omentum was incised. There was no accessory hepatic artery coming off the left gastric artery; thus, the left gastric vein and artery were divided at the level of the
origin of the left gastric artery to ensure adequate lymph node procurement.
A generous Elba maneuver was then performed. A 2-cm long pyloromyotomy was carried out, beginning 1.5 cm on the stomach, extending through the pylorus, and onto the duodenum for 0.5 cm. First, 2 [id number] 3-0 silk stay sutures were placed on
the superior and inferior anterior border of the pylorus. Then, the myotomy was performed using the cutting current of a needle-tipped electrocautery, and a fine-tipped mosquito clamp was used to dissect the gastric and duodenal muscle away from the
underlying submucosa. The lumen of the duodenum was entered, so it was converted to pyloroplasty. Two 3-0 stay sutures were placed, one superior and the other inferior, at the level of the pylorus). The longitudinal incision was stretched into a
gunnar shape by applying traction on the stay sutures. The incision was then closed transversely with a #4-0 PDS in a running fashion.
Attention was then turned to the mobilization of the esophagus. With downward traction on the Cary drain encircling the esophagogastric junction, the diaphragmatic hiatus was progressively dilated until a hand could be inserted into the posterior
mediastinum through the diaphragmatic hiatus. Dissection of the distal 10 cm of the esophagus was carried out sharply using the electrocautery and a long right-angled clamp and then more superiorly keeping the fingers closely applied to the
esophagus. Accessible paraesophageal, left gastric, and celiac axis lymph nodes and soft tissue were mobilized for resection with the esophagus and proximal stomach. The dissection along the lower third of the esophagus was carried to the level of
the micky.
Attention was then turned to the neck. Through an oblique left cervical incision paralleling the anterior border of the sternocleidomastoid muscle, the platysma muscle was divided, the carotid sheath and its contents retracted laterally, the trachea
and thyroid gland medially, and the prevertebral fascia identified. Care was taken throughout this and subsequent portions of the cervical dissection to avoid direct pressure on the recurrent laryngeal nerve in the tracheoesophageal groove. The
cervical esophagus was encircled with a 1-inch Ciera drain, and with gentle upward traction on this drain, blunt mobilization of the upper thoracic esophagus from the superior mediastinum was carried out. Working upward from the diaphragmatic
hiatus and downward through the cervical incision, mobilization of the esophagus was completed using a combination of finger dissection and dissection with a curved sponge stick. Dissection was carried out along the posterior aspect of the
esophagus, followed by dissection of the lateral and anterior attachments. Once the entire intrathoracic esophagus was free from the mediastinum, the upper esophagus was delivered into the neck wound, the nasogastric tube pulled back into the
oropharynx, and the esophagus divided with a PAUL surgical stapler. The stomach and esophagus were delivered out of the abdominal wound.
The esophagus and proximal stomach were then from the remaining stomach by applying a PAUL surgical stapler several times, beginning along the lesser curvature of the stomach 4-5 cm distal to the esophagogastric junction. The thoracic
esophagus and proximal stomach were then removed and sent to the pathology department.
The stomach was then gently manipulated through the hiatus and advanced manually upward through the posterior mediastinum until the gastric fundus was visualized at the base of the neck wound and drawn into the field using a Houston clamp. Care was
taken to be certain that the stomach was not twisted within the mediastinum.
The abdomen was then inspected for hemostasis. The diaphragmatic hiatus was narrowed to 3 fingerbreadths with interrupted 1-0 silk sutures. Care was taken to include the parietal peritoneum. The jejunostomy tube was brought out through a separate
left upper quadrant incision and tacked to the adjacent peritoneum with interrupted 3-0 silk sutures. The tube was secured to the skin with a 3-0 Prolene suture. The abdomen was closed using running 0 PDS. The skin was closed with christy.
After the abdomen was closed, cervical esophagogastric anastomosis was performed. The stomach was pulled out of the neck, a 1.5 cm vertical anterior gastrotomy was made, and the stapled end of the cervical esophagus was amputated. A gfqj-wl-plca
anastomosis between the cervical esophagus and gastric fundus was performed using the ENDO-30 PAUL stapler.
Two outer layer 4-0 Vicryl Lembert sutures were placed laterally to the stapler between the esophagus and stomach. After the firing of the stapler, 2 more lateral suspension sutures of 4-0 Vicryl were placed between the cervical esophagus and the
stomach on either side of the anastomosis. The nasogastric tube was then readvanced from the oropharynx to approximately 40-45 cm at the nares to ensure tip placement in the intrathoracic conduit under direct vision. The anterior esophagotomy and
gastrotomy were closed in 2 layers, first with running and then with interrupted 4-0 PDS sutures.
The neck was irrigated, and then a �-inch Cary drain was placed next to the anastomosis. The muscle fascia was loosely approximated with interrupted 3-0 Vicryl, and the skin edges were approximated with running 4-0 nylon. Dry sterile dressings
were applied to all incisions. The final instruments, needles, and sponge counts were correct. The patient was extubated and transferred to recovery.
--- NOTE | 2024-01-26 17:58 | PTCARENOTE ---
Pt OOB in chair for 1.5hr. Increased pain with movement along with nausea and diaphoresis. PRN Dilaudid and Zofran given. Pt resting in bed at this time.
--- NOTE | 2024-01-26 21:00 | PTCARENOTE ---
Rec'd care of patient at 1900. Family at bedside. AAOx3. NSR on tele monitor. Rate in the 80-90's. HR occasionally up to 100's with movement in the bed. Patient weaned to RA on day shift. Pulse ox 88%. 2L nc placed back on. Hypo BS. TFs infusing
through j-tube. NGT to low intermittent suction. Left neck dressing intact; drainage unchanged. Midline Aquacell dressing c/d/i. No drainage. Gonzalez draining yellow urine. 30-50 cc's an hour. Pain better controlled with scheduled Toradol and PRN
Dilaudid.
--- NOTE | 2024-01-26 23:50 | PTCARENOTE ---
Patient resting comfortably. Only complaint is phlegm in back of throat. VSS. Increasing TFs towards goal rate.
[2024-01-27] VITALS (15 sets, daily range): BP systolic 106–164; BP diastolic 65–96; O2SAT 95; BMI 22.5
[2024-01-27] MEDS: DILAUDID 1 MG IV ×5 (02:02→22:40)
[2024-01-27] MEDS: TORADOL 15 MG IV ×4 (04:26→22:41)
--- NOTE | 2024-01-27 04:39 | PTCARENOTE ---
Patient having intermittent episodes of pain with associated body tremors throughout the night. Resolved with Toradol and Dilaudid (see MAR). VSS. Patient resting comfortably between episodes. All other assessments unchanged.
[2024-01-27 04:59] LABS: Hematocrit 28.6 % (39.0-52.0); Hemoglobin 9.6 g/dL (13.0-18.0); Mean Corp Hgb Conc. 33.6 g/dL (33.0-37.0); Mean Corpuscular Hgb 32.3 pg (27.0-31.0); Mean Corpuscular Volume 96.3 fL (80.0-94.0); Mean Platelet Volume 10.5 fL (7.4-10.4); Platelet Count 182 10^3/uL (130-400); Red Blood Cell Count 2.97 10^6/uL (4.70-6.10); Red Cell Dist. Width 16.3 % (11.5-14.5); White Blood Cell Count 8.9 10^3/uL (4.8-10.8)
[2024-01-27 05:26] LABS: Blood Urea Nitrogen 26 mg/dl (9-20); Calcium 8.4 mg/dl (8.4-10.2); Carbon Dioxide 27 mmol/L (22-30); Chloride 103 mmol/L (98-107); Estimated Creatinine Clearance 86 ml/min; Glucose 102 mg/dl (70-99); Magnesium 2.1 mg/dl (1.6-2.3); Potassium 4.6 mmol/L (3.5-5.1); Sodium 132 mmol/L (135-145); eGFR > 60.00
--- NOTE | 2024-01-27 09:48 | W.PN.HOSP.TC ---
Today's Communication/Plan
-
see A/P
Assessment / Plan
Assessment / Plan
HPI: 68 years old male with esophageal adenocarcinoma, well-differentiated and diagnosed August 2023.
Esophageal adenocarcinoma clinically and radiologically limited to esophagus
Patient underwent PEG tube placement and chemoradiation treatment.
Patient underwent uneventful esophagectomy on 01/24 with estimated blood loss 150 mL.
Extubated successfully with stable respiratory and hemodynamic status.
NG tube being replaced to surpass anastomosis
Admit to ICU for close monitoring post op.
Hospitalist service asked to admit due to ICU level of care.
IMPRESSION:
Esophageal adenocarcinoma, well-differentiated, clinically and radiologically limited to esophagus.
Recently finished neoadjuvant chemotherapy. Underwent esophagectomy by Dr. Crow on 01/25/[address]
Tobacco use disorder
Hypertension by history not on medications prior to presentation
RBBB
Dyslipidemia
PLAN:
Admit to ICU for close monitoring
NG tube in place to bypass anastomosis. Orders not to manipulate.
Aspiration precautions.
Nutrition team consulted for PEG tube feeding initiation.
Started Jevity 1.5 and advance to goal rate
Monitor electrolytes.
Monitor CBC.
Cont current IV Dilaudid PRN for pain
DVT prophylaxis: Mechanical
Full code
LISA Crow
Anticipated Discharge: 24 - 48 hours
Subjective/Interval History
-
Date of Service: January 27, 2024
Objective Data
-
Labs:
Laboratory Results
01/27/24
04:33
WBC 8.9
Hgb 9.6 L
Hct 28.6 L
Plt Count 182
Sodium 132 L
Potassium 4.6
Chloride 103
Carbon Dioxide 27
BUN 26 H
Creatinine 0.7
Glucose 102 H
Calcium 8.4
Vital Signs:
Vital Signs
Temp Pulse Resp BP Pulse Ox
37.1 C 82 14 110/81 97
01/27/24 07:30 01/27/24 06:00 01/27/24 06:00 01/27/24 06:00 01/27/24 06:00
I&O
01/26/24 01/27/24 01/28/24
06:59 06:59 06:59
Intake Total 1400 / 1500 1550 / 1550
Output Total 1550 / 1600 1045 / 1045
Balance -150 / -100 505 / 505
Review of Systems
-
Constitutional: Reports Other (abdominal pain)
Physical Exam
-
General: Well Developed, Conversant and Appears Chronically Ill
HEENT: Normocephalic, Atraumatic, Nose Appears Normal, Ears Appear Normal and Oxygen (2L NC)
Respiratory: Clear to Auscultation and Non Labored Respirations; Negative Accessory Resp Muscle Use
Cardiac: Regular Rhythm and S1/S2
GI: Tender, Peg Tube and Other (in wound dressing)
Skin: Warm and Dry
Neuro: Awake and Alert
Psych: Calm and Intact Judgement/Insight
Data Reviewed
-
Labs: Labs Reviewed by me
--- NOTE | 2024-01-27 09:57 | W.PN.INTV ---
Today's Communication / Plan
Recommendations
Continue pain control
Incentive spirometry
Tube feedings
Increase activity as able
Daily labs
Hopefully transfer out of the ICU later today.
Assessment
-
Status post transhiatal esophagectomy
Conditions present prior admission:
Esophageal cancer status post radiation and neoadjuvant chemotherapy
GERD
Hypertension
Incomplete RBBB
Former smoker-quit 90 days ago-chronic bronchitic symptoms-possible COPD
Plan recommendations:
Postoperative day 2
-
Pain still present but better controlled
Continue Dilaudid
Continue Toradol
Continue to monitor respiratory status closely.
-
Complaining of coughing and phlegm production-he quit smoking 3 months ago.
Not bronchospastic on exam
Not requiring oxygen
Hold on nebulizers
Incentive spirometry encourage
-
Increase activity as able.
-
Hemodynamically stable
Hypertensive
Hydralazine as needed, does not take any medication at home.
-
N.p.o.-defer to surgery
NG tube in place, only to be managed by surgery.
G-tube in place, tolerating tube feedings.
-
DVT prophylaxis with SCDs, pharmacological prophylaxis when cleared by surgery.
-
Hopefully transfer out of the ICU to [facility] later today.
If transfer out of critical care team will sign off
Please call pulmonary if any respiratory issues arise.
Would recommend outpatient pulmonary follow-up for COPD evaluation in the future.
Subjective Dataa
Subjective Data
Date of Service:
Date of Service: January 27, 2024
Chief Complaint: Skilled Labor Follow Up (Status post esophagectomy)
Subjective:
Complaining of coughing up phlegm production.
Has been going on for several weeks after he stopped smoking.
Pain is better controlled.
Denies shortness of breath or wheezing.
Review of Systems
General: Fever (n)
Cardiopulmonary: Dyspnea (none at rest), Cough, Sputum Production and Wheezing (n)
GI: Abdominal Pain (n) and Nausea (n)
Objective Data
Data Reviewed
Vital Signs / I&O / Oxygen:
Vital Signs
Temp Pulse Resp BP Pulse Ox
98.7 F 82 14 110/81 97
01/27/24 07:30 01/27/24 06:00 01/27/24 06:00 01/27/24 06:00 01/27/24 06:00
Intake and Output
01/26/24 01/27/24 01/28/24
06:59 06:59 06:59
Intake Total 1400 / 1500 1550 / 1550
Output Total 1550 / 1600 1045 / 1045
Balance -150 / -100 505 / 505
SaO2 97
Nasal Cannula flow liters per 2
minute
Physical Exam
General: Respiratory Distress (n) and Comfortable
HEENT: Normocephalic
Cardiovascular: S1-S2
Respiratory: Clear and Non-Labored Respirations
GI: Soft, Non Distended and Other (NG tube in place)
Neurology: Awake, Alert and Oriented
Skin: Warm
Labs/Micro/Reports
Lab Data
01/27/24 04:33
01/27/24 04:33
[2024-01-27] MEDS: MIRALAX 17 GRAMS PO (11:01)
[2024-01-27] MEDS: SENOKOT-S 1 TABLET PO (11:01)
--- NOTE | 2024-01-27 11:11 | PTCARENOTE ---
Pt reports increased abdominal pain. Noted to be more distended. Pt reports issues with constipation in the past. notified. New orders received.
Attempted to remove O2. SpO2 88% on room air. SpO2 95-7% on 2L at this time. Encouraged I/S.
Pt reports high anxiety about getting out of bed and moving his bowels d/t increased pain. Education provided about need for early mobility. Notified pt he will be assisted out of bed to chair later today. Reassured him that pain meds and
assistance would be provided. Encouraged pt to frequently reposition in bed. All other assessments unchanged.
--- NOTE | 2024-01-27 11:34 | W.PN.GENERIC ---
Assessment / Plan
-
S/p Transhiatal esophagectomy POD #2
Stable
dec Hg noted - perioperative blood loss. observe
OOB and ambulated with NGT clamped.
Make sure NGT to reconnect to intermittent suction when in room
Start MOM via G-tube for constipation
Await path.
CAP IVF
Physician Progress Note
Subjective
C/o incisional pain
Objective
Vital Signs
Temp Pulse Resp BP Pulse Ox
98.7 F 102 17 151/96 96
01/27/24 07:30 01/27/24 10:45 01/27/24 10:45 01/27/24 10:00 01/27/24 10:45
Lab Results
01/27/24 04:33
01/27/24 04:33
Abdomen - some distention. Dsg intact
Pul - dec BS bilat
Cor - RRR
[2024-01-27] MEDS: MILK OF MAGNESIA 30 ML PO (12:53)
[2024-01-27] MEDS: MORPHINE SULFATE 1 MG IV ×2 (14:17→23:15)
[2024-01-27] MEDS: ZOFRAN 4 MG IV (14:17)
--- NOTE | 2024-01-27 18:10 | PTCARENOTE ---
Patient voiding 175cc of straw colored urine in to urinal. Will continue to monitor.
[2024-01-28] MEDS: DILAUDID 1 MG IV ×7 (01:42→22:55)
[2024-01-28] MEDS: TORADOL 15 MG IV ×4 (04:47→22:55)
[2024-01-28 06:18] LABS: Hematocrit 29.1 % (39.0-52.0); Hemoglobin 9.3 g/dL (13.0-18.0); Mean Corpuscular Hgb 31.7 pg (27.0-31.0); Mean Corpuscular Volume 99.3 fL (80.0-94.0); Mean Platelet Volume 11.1 fL (7.4-10.4); Platelet Count 187 10^3/uL (130-400); Red Blood Cell Count 2.93 10^6/uL (4.70-6.10); White Blood Cell Count 8.1 10^3/uL (4.8-10.8)
[2024-01-28 06:52] LABS: Blood Urea Nitrogen 29 mg/dl (9-20); Carbon Dioxide 30 mmol/L (22-30); Chloride 100 mmol/L (98-107); Estimated Creatinine Clearance 86 ml/min; Glucose 102 mg/dl (70-99); Potassium 5.8 mmol/L (3.5-5.1); Sodium 137 mmol/L (135-145); eGFR > 60.00
[2024-01-28 07:28] VITALS: BP 120/82
[2024-01-28 07:53] LABS: Blood Urea Nitrogen 29 mg/dl (9-20); Calcium 8.4 mg/dl (8.4-10.2); Carbon Dioxide 31 mmol/L (22-30); Chloride 100 mmol/L (98-107); Estimated Creatinine Clearance 86 ml/min; Glucose 111 mg/dl (70-99); Potassium 4.9 mmol/L (3.5-5.1); Sodium 133 mmol/L (135-145); eGFR > 60.00
--- NOTE | 2024-01-28 11:11 | CM ---
Patient seen bedside.
IA completed.
S/P esophagectomy 01/25/24.
Patient lives with spouse in a split level home with 6 steps to enter and 5 steps between floors.
Patient assists home at home.
Per patient his also has cancer.
Patient ambulates without assistive devices.
Patient has a PEG tube and was getting tube feeds from [facility].
Patient unsure who was ordering tube feeds.
Per [facility], if tube feeds remain the same they will need a script to reflect that to resume services, updated labs and updated clinicals.
Patient had [facility] in the past, but not current per patient, he stated he has a friend help and his .
Patient open to [facility]. Referral via [facility].
PCP: Dr Thornton
Pharmacy: [facility]
Plan: home with [facility]
[2024-01-28 11:42] VITALS: BP 145/88; PULSE 105; O2SAT 97
[2024-01-28] MEDS: MORPHINE SULFATE 1 MG IV ×2 (11:42→19:26)
[2024-01-28 15:48] VITALS: BP 159/81
--- NOTE | 2024-01-28 17:00 | PTCARENOTE ---
Addendum entered by Ela Olson RN 01/28/24 20:26:
Dr. Crow notified of no BM and ABD distention. TF rate slowed to 40ml/hr. MOM administered. Pain medications given, see NOV.
Original Note:
Patient OOB to chair for 2+ hours today. Pain managed with scheduled Toradol, and PRN Morphine and Dilaudid. Patient maintained NPO with R nare NG tube to low intermittent suction. TF running at 50ml/hr with 25ml flush. Patient reports passing gas
but has not had a BM. ABD appears round and distended. Dressing to L neck Pnerose drain CDI. Midline ABD aquacel CDI. Patient voiding in urinal. VSS. at bedside.
[2024-01-28] MEDS: MILK OF MAGNESIA 30 ML PO (19:40)
[2024-01-28 22:46] VITALS: BP 160/90
[2024-01-29] MEDS: DILAUDID 1 MG IV ×5 (02:02→21:57)
[2024-01-29] MEDS: TORADOL 15 MG IV ×2 (04:56→10:08)
[2024-01-29 07:00] VITALS: BP 149/96
[2024-01-29] MEDS: MIRALAX 17 GRAMS PO (10:07)
--- NOTE | 2024-01-29 11:24 | W.PN.GENERIC ---
Assessment / Plan
-
S/p Transhiatal esophagectomy POD #4
Stable
Will increase Toradol to 30 mg
Continue NGT/NPO/TF
Will plan to dc NGT tomorrow
OOB and ambulate. PT to see pt
Will change prn meds for constipation to schd
Await path
Dec Hg due to periop blood loss. No evidence of active bleeding
Encourage pulm toilet
Physician Progress Note
Subjective
Still with significant incisional pain. ALso c/o constipation. Had a small BM today. Also had some dry heaves
Objective
Vital Signs
Temp Pulse Resp BP Pulse Ox
98.7 F 95 18 149/96 99
01/29/24 07:00 01/29/24 07:00 01/29/24 07:00 01/29/24 07:00 01/29/24 09:00
Lab Results
01/28/24 04:46
01/28/24 07:20
Abd - soft but some distention. Incision - CDI
Pul - dec bilater
Cor - RRR
[2024-01-29 11:48] VITALS: BP 138/8; PULSE 105; O2SAT 91
--- NOTE | 2024-01-29 14:24 | CM ---
Patient seen bedside with spouse.
patient continues with IV anbx and NGT.
TF via PEG tube.
Per spouse she administers TF at home.
Marti was the nurse who followed patient with [facility] and they requested to have her back. Liaison updated.
Plan: home with [facility] and [facility] for TF: [facility] will need a RX: resume enteral feeds as prior to hospitalization. They will also need updated labs, and clinicals faxed to [phone].
[2024-01-29 15:00] VITALS: BP 165/99
[2024-01-29] MEDS: TORADOL 30 MG IV ×2 (15:07→21:58)
--- NOTE | 2024-01-29 15:35 | PTCARENOTE ---
01/28- Patient's states he is dizzy at rest, and T=100.3. She states, 'this is what happens if he gets dehydrated. He needs fluids.' Educated patient and spouse on dehydration, self-care and critical signs of dehydration. Advised I will ask
Physician. Patient and Spouse verbalized understanding. They decline offer for tylenol for fever. Notified Physician. Continue to monitor.
--- NOTE | 2024-01-29 16:55 | W.PN.HOSP.TC ---
Today's Communication/Plan
-
Postoperative care
Assessment / Plan
Assessment / Plan
HPI: 68 years old male with esophageal adenocarcinoma, well-differentiated and diagnosed August 2023.
Esophageal adenocarcinoma clinically and radiologically limited to esophagus
Patient underwent PEG tube placement and chemoradiation treatment.
Patient underwent uneventful esophagectomy on 01/24 with estimated blood loss 150 mL.
Extubated successfully with stable respiratory and hemodynamic status.
NG tube being replaced to surpass anastomosis
IMPRESSION:
Esophageal adenocarcinoma, well-differentiated, clinically and radiologically limited to esophagus.
Status post esophagectomy on 01/24 with estimated blood loss 150 mL.
Recently finished neoadjuvant chemotherapy. Underwent esophagectomy by Dr. Crow on 01/25/[address]
Tobacco use disorder
Hypertension by history not on medications prior to presentation
RBBB
Dyslipidemia
PLAN:
NG tube in place to bypass anastomosis. Orders not to manipulate.
Aspiration precautions.
Plan is for removal of NG tube on 01/29 and clear liquid diet
Continue PEG tube feeding with Jevity 1.5 and advance to goal rate
Monitor electrolytes.
Monitor CBC.
Analgesic regimen has been adjusted
DVT prophylaxis: Mechanical
Full code
LISA Crow
Anticipated Discharge: 24 - 48 hours
Subjective/Interval History
-
Date of Service: January 29, 2024
Objective Data
-
Vital Signs:
Vital Signs
Temp Pulse Resp BP Pulse Ox
100.2 F 84 18 165/99 94
01/29/24 15:00 01/29/24 15:00 01/29/24 15:00 01/29/24 15:00 01/29/24 15:00
I&O
01/28/24 01/29/24 01/30/24
06:59 06:59 06:59
Intake Total 375 / 375 1710 / 1710
Output Total 660 / 660 450 / 450
Balance -285 / -285 1260 / 1260
Physical Exam
-
General: Well Developed and No Apparent Distress
HEENT: Normocephalic, Atraumatic and Moist Mucous Membranes
Respiratory: Clear to Auscultation
Cardiac: Regular Rhythm and S1/S2; Negative Murmur, Rub or Gallop
GI: Soft, Nontender, Nondistended, Normal Bowel Sounds, Peg Tube and Other (NG tube is in place.); Negative Organomegaly
Rectal: Deferred by Provider
Musculoskeletal: No Clubbing, No Cyanosis and No Edema
Skin: Negative Rash
Neuro: Nonfocal/Grossly Intact
[2024-01-29] MEDS: SENOKOT-S 1 TABLET TUBE (21:56)
[2024-01-29 22:57] VITALS: BP 157/96
[2024-01-29] MEDS: TYLENOL 650 MG PO (23:08)
[2024-01-30] MEDS: DILAUDID 1 MG IV ×5 (01:30→18:11)
[2024-01-30] MEDS: TORADOL 30 MG IV ×4 (04:13→22:08)
--- NOTE | 2024-01-30 04:59 | W.PN.UPDATE ---
Update Note
Progress Note Update
RN notified ABSTRACT WRITER, Patient with temp of 101.7 and had fever of 100 during day time. Denies any fever chills, cough. noticed dark urine and addressed the surgical wound is packed with dressing. Tylenol PO was given and temp of 97 noted in AM. RN
mentioned urine looks darker therefore will order an UA to culture and lactic acid
[2024-01-30 05:59] LABS: Hemoglobin 9.1 g/dL (13.0-18.0); Mean Corp Hgb Conc. 33.7 g/dL (33.0-37.0); Mean Corpuscular Hgb 31.5 pg (27.0-31.0); Mean Corpuscular Volume 93.4 fL (80.0-94.0); Mean Platelet Volume 10.1 fL (7.4-10.4); Platelet Count 219 10^3/uL (130-400); Red Blood Cell Count 2.89 10^6/uL (4.70-6.10); Red Cell Dist. Width 15.4 % (11.5-14.5); White Blood Cell Count 9.4 10^3/uL (4.8-10.8)
[2024-01-30 06:03] LABS: Lactic Acid 0.7 mmol/L (0.7-2.0)
[2024-01-30 06:24] LABS: ALT (SGPT) 41 U/L (0-50); AST (SGOT) 39 U/L (17-59); Alkaline Phosphatase 183 U/L (38-126); Blood Urea Nitrogen 30 mg/dl (9-20); Calcium 8.6 mg/dl (8.4-10.2); Carbon Dioxide 27 mmol/L (22-30); Chloride 101 mmol/L (98-107); Estimated Creatinine Clearance 101 ml/min; Glucose 126 mg/dl (70-99); Potassium 4.5 mmol/L (3.5-5.1); Sodium 135 mmol/L (135-145); Total Bilirubin 0.6 mg/dl (0.2-1.3); Total Protein 5.7 g/dl (6.3-8.2); eGFR > 60.00
[2024-01-30 06:44] LABS: Urine Albumin Trace (Neg - Trace); Urine Bilirubin Negative (Negative); Urine Character Clear (Clear); Urine Color Yellow; Urine Glucose Negative (Negative); Urine Ketone Trace (Negative); Urine Leukocyte Negative (Negative); Urine Nitrite Negative (Negative); Urine Occult Blood Negative (Negative); Urine Urobilinogen 1+ (Neg - 1+)
[2024-01-30 07:00] VITALS: BP 151/95
[2024-01-30] MEDS: MIRALAX 17 GRAMS PO (08:15)
[2024-01-30] MEDS: SENOKOT-S 1 TABLET TUBE ×2 (08:15→22:07)
--- NOTE | 2024-01-30 10:45 | PTCARENOTE ---
5/8- patient states he will pull out his own NGT if the Physician does not come up to do it. He states feeling anxious, dizzy, weak and drowsy. He states he feels that way and starts spiking low-grade temps when he is dehydrated. Therapeutic
conversation de-escalated patient. Advised on the potential consequences of pulling his own tube. Advised I will immediately notify physician and ask about his plan of care moving forward. He verbalized understanding. Was able to de-escalate
patient at this time. TT'ed Physician.
--- NOTE | 2024-01-30 12:33 | CM ---
Patient seen bedside.
Patient appeared dyspneic when speaking, when asked if he was short of breath he stated he was a little. Nursing updated.
Patient with NGT. TF via Peg Tube.
Continues on IV anbx.
Plan: home with [facility] when stable and [facility] for tube feeds.
--- NOTE | 2024-01-30 12:47 | PN.CDI ---
CDI
- -
CDI:
Physician Documentation Request
Admit Date: 01/25/24 06:15
Dear Doctor Tristin,
Patient admitted with esophageal cancer s/p transhiatal esophagectomy.
Na levels documented below:
Patient received IV fluids.
Laboratory Tests
01/26/24 01/27/24 01/28/24
03:16 04:33 07:20
Sodium 132 L 132 L 133 L
Based on the above, please clarify in the progress notes, the appropriate diagnosis, if significant, that supports the above abnormalities and additional evaluation, monitoring and/or treatment rendered:
Hyponatremia
Insignificant abnormal lab findings
Other
Use of terms such as suspected, likely, concern for, or probable (associated with a specific diagnosis that is being evaluated, monitored, or treated as if it exists) are acceptable and can be coded in the inpatient setting, when documented at the
time of discharge.
Thank you,
Christie SUÁREZ,RN,CCDS
CDI Specialist
Available via [place] text
Please use your independent medical judgment in providing your response.
--- NOTE | 2024-01-30 12:58 | PN.CDI ---
CDI
- -
CDI:
Physician Documentation Request
Admit Date: 01/25/24 06:15
Dear Doctor Tristin,
Patient admitted with esophageal cancer s/p transhiatal esophagectomy.
5/7 PN, 'Dec Hg due to periop blood loss.'
Hgb levels documented below:
Laboratory Tests
01/22/24 01/25/24 01/26/24
08:23 17:05 03:16
Hgb 11.4 L 11.2 L 10.7 L
01/27/24 01/28/24 01/30/24
04:33 04:46 05:44
Hgb 9.6 L 9.3 L 9.1 L
Based on the above, please clarify, in your progress note, which of the following is the most likely diagnosis you are evaluating,
monitoring and/or treating?
Acute blood loss anemia
Acute blood loss anemia with baseline chronic anemia
Insignificant abnormal lab findings
Other
Use of terms such as suspected, likely, concern for, or probable (associated with a specific diagnosis that is being evaluated, monitored, or treated as if it exists) are acceptable and can be coded in the inpatient setting, when documented at the
time of discharge.
Thank you,
Christie SUÁREZ,RN,CCDS
CDI Specialist
Available via [place] text
Please use your independent medical judgment in providing your response.
[2024-01-30 15:00] VITALS: BP 137/81
[2024-01-30 15:27] LABS: Procalcitonin 0.23 ng/ml (0.0-0.25)
--- NOTE | 2024-01-30 15:53 | W.PN.HOSP.TC ---
Today's Communication/Plan
-
Single episode of fever noted on 01/29.
Nontoxic-appearing.
Chest x-ray with bilateral atelectasis.
Normal procalcitonin level.
Blood cultures pending
Monitor closely, would be low threshold for empiric antibiotics for nosocomial/aspiration pneumonia if recurrent fever.
Incentive spirometry.
Increase activity.
Reduce hydromorphone dose to every 6 hours as needed
Gentle hydration given mildly elevated BUN
Assessment / Plan
Assessment / Plan
HPI: 68 years old male with esophageal adenocarcinoma, well-differentiated and diagnosed August 2023.
Esophageal adenocarcinoma clinically and radiologically limited to esophagus
Patient underwent PEG tube placement and chemoradiation treatment.
Patient underwent uneventful esophagectomy on 01/24 with estimated blood loss 150 mL.
Extubated successfully with stable respiratory and hemodynamic status.
NG tube being replaced to surpass anastomosis
IMPRESSION:
Esophageal adenocarcinoma, well-differentiated, clinically and radiologically limited to esophagus.
Status post esophagectomy on 01/24 with estimated blood loss 150 mL.
Recently finished neoadjuvant chemotherapy. Underwent esophagectomy by Dr. Crow on 01/25/[address]
Tobacco use disorder
Hypertension by history not on medications prior to presentation
RBBB
Dyslipidemia
PLAN:
NG tube in place to bypass anastomosis. Orders not to manipulate.
Aspiration precautions.
Plan is for removal of NG tube on 01/29 and clear liquid diet
Continue PEG tube feeding with Jevity 1.5 and advance to goal rate
Monitor electrolytes.
Monitor CBC.
Analgesic regimen has been adjusted
Single episode of fever noted on 01/29.
Nontoxic-appearing.
Chest x-ray with bilateral atelectasis.
Normal procalcitonin level.
Blood cultures pending
Monitor closely, would be low threshold for empiric antibiotics for nosocomial/aspiration pneumonia if recurrent fever.
Incentive spirometry.
Increase activity.
Reduce narcotic dose
DVT prophylaxis: Mechanical
Full code
LISA Crow
Anticipated Discharge: > 48 hours
Subjective/Interval History
-
Date of Service: January 30, 2024
Objective Data
-
Labs:
Laboratory Results
01/30/24
05:44
WBC 9.4
Hgb 9.1 L
Hct 27.0 L
Plt Count 219
Sodium 135
Potassium 4.5
Chloride 101
Carbon Dioxide 27
BUN 30 H
Creatinine 0.6 L
Glucose 126 H
Calcium 8.6
Total Bilirubin 0.6
AST 39
ALT 41
Alkaline Phosphatase 183 H
Vital Signs:
Vital Signs
Temp Pulse Resp BP Pulse Ox
98.0 F 93 18 151/95 98
01/30/24 07:00 01/30/24 07:00 01/30/24 07:00 01/30/24 07:00 01/30/24 08:15
I&O
01/29/24 01/30/24 01/31/24
06:59 06:59 06:59
Intake Total 1710 / 1710 960 / 960
Output Total 450 / 450 1250 / 1250
Balance 1260 / 1260 -290 / -290
Physical Exam
-
General: Well Developed and No Apparent Distress
HEENT: Normocephalic, Atraumatic and Moist Mucous Membranes
Respiratory: Clear to Auscultation
Cardiac: Regular Rhythm and S1/S2; Negative Murmur, Rub or Gallop
GI: Soft, Nontender, Nondistended and Normal Bowel Sounds; Negative Organomegaly
Rectal: Deferred by Provider
Musculoskeletal: No Clubbing, No Cyanosis and No Edema
Skin: Negative Rash
Neuro: Nonfocal/Grossly Intact
[2024-01-30] MEDS: NSS 1000 IV (16:00)
--- NOTE | 2024-01-30 17:26 | W.PN.GENERIC ---
Assessment / Plan
-
S/p Transhiatal esophagectomy POD # 5
Stable.
No more episodes of fevers since last pm and WBC normal
most likely atelectasis
NGT dc'd and the bedside test for the anastomotic leak with juice shows no obvious leak
Barium swallow tomorrow for a definitive test.
Keep pt NPO
He needs to ambulate more. Encourage pulm toilet
Hope to start diet tomorrow if the barium study is negative
Await path.
Low Hg and sodium are expected after this surgery without any clinically significance. They should improve as he improves
Physician Progress Note
Subjective
Feeling better. No N/V. Had multiple BMs
Objective
Vital Signs
Temp Pulse Resp BP Pulse Ox
98.3 F 88 18 137/81 95
01/30/24 15:00 01/30/24 15:00 01/30/24 15:00 01/30/24 15:00 01/30/24 15:00
Lab Results
01/30/24 05:44
01/30/24 05:44
Abd - Soft NT. Incision CDI
Neck - incision CDI. Drain intact
Pul - dec BS
Cor - RRR
[2024-01-30 23:42] VITALS: BP 149/91
[2024-01-31] MEDS: DILAUDID 1 MG IV ×5 (01:10→23:31)
[2024-01-31] MEDS: TORADOL 30 MG IV ×4 (04:34→22:08)
[2024-01-31 06:25] LABS: % Basophils 0.3 % (0-2); % Eosinophils 1.9 % (0-6); % Immature Granulocytes 0.4 % (0-0.5); % Lymphocytes 5.1 % (20.5-51.1); % Monocytes 17.9 % (1.7-9.3); % Neutrophils 74.4 % (42.2-75.2); Absolute Eosinophils 0.2 10^3/uL (0-0.7); Absolute Lymphocytes 0.5 10^3/uL (1.2-3.4); Absolute Monocytes 1.8 10^3/uL (0.1-0.6); Absolute Neutrophils 7.3 10^3/uL (1.4-6.5); Hematocrit 28.1 % (39.0-52.0); Hemoglobin 9.3 g/dL (13.0-18.0); Mean Corp Hgb Conc. 33.1 g/dL (33.0-37.0); Mean Corpuscular Hgb 32.3 pg (27.0-31.0); Mean Corpuscular Volume 97.6 fL (80.0-94.0); Mean Platelet Volume 11.2 fL (7.4-10.4); Nucleated Red Blood Cells % 0 % (-); Platelet Count 241 10^3/uL (130-400); Red Blood Cell Count 2.88 10^6/uL (4.70-6.10); Red Cell Dist. Width 15.5 % (11.5-14.5); White Blood Cell Count 9.8 10^3/uL (4.8-10.8)
[2024-01-31 07:00] VITALS: BP 151/99
[2024-01-31 07:04] LABS: ALT (SGPT) 49 U/L (0-50); AST (SGOT) 41 U/L (17-59); Albumin 3.1 g/dl (3.5-5.0); Alkaline Phosphatase 221 U/L (38-126); Blood Urea Nitrogen 28 mg/dl (9-20); Calcium 8.5 mg/dl (8.4-10.2); Carbon Dioxide 29 mmol/L (22-30); Chloride 102 mmol/L (98-107); Estimated Creatinine Clearance 86 ml/min; Glucose 110 mg/dl (70-99); Potassium 5.3 mmol/L (3.5-5.1); Sodium 136 mmol/L (135-145); Total Bilirubin 0.4 mg/dl (0.2-1.3); Total Protein 5.9 g/dl (6.3-8.2); eGFR > 60.00
[2024-01-31 08:02] LABS: COVID-19 Antigen Negative (Negative)
[2024-01-31] MEDS: MIRALAX 17 GRAMS PO (08:15)
[2024-01-31] MEDS: SENOKOT-S 1 TABLET TUBE ×2 (08:15→20:06)
--- NOTE | 2024-01-31 14:16 | CM ---
Patient seen bedside.
NGT discontinued.
UGI ordered.
PT/OT recommending home care.
TF continued via PEG.
Plan: home with [facility]N and resumption of Care for [facility]. (they will need script, see prior notes)
[2024-01-31 15:00] VITALS: BP 138/88
--- NOTE | 2024-01-31 16:31 | W.PN.HOSP.TC ---
Today's Communication/Plan
-
Postoperative care.
Monitor for recurrent fever.
Increase activity.
Assessment / Plan
Assessment / Plan
HPI: 68 years old male with esophageal adenocarcinoma, well-differentiated and diagnosed August 2023.
Esophageal adenocarcinoma clinically and radiologically limited to esophagus
Patient underwent PEG tube placement and chemoradiation treatment.
Patient underwent uneventful esophagectomy on 01/24 with estimated blood loss 150 mL.
Extubated successfully with stable respiratory and hemodynamic status.
NG tube being replaced to surpass anastomosis
IMPRESSION:
Esophageal adenocarcinoma, well-differentiated, clinically and radiologically limited to esophagus.
Status post esophagectomy on 01/24 with estimated blood loss 150 mL.
Recently finished neoadjuvant chemotherapy. Underwent esophagectomy by Dr. Crow on 01/25/[address]
Tobacco use disorder
Hypertension by history not on medications prior to presentation
RBBB
Dyslipidemia
PLAN:
NG tube removed on 01/29
Diet to be advanced as per surgery pending esophageal x-ray.
Continue PEG tube feeding with Jevity 1.5 and advance to goal rate
Monitor electrolytes.
Monitor CBC.
Analgesic regimen has been adjusted
Single episode of fever noted on 01/29.
Nontoxic-appearing.
Chest x-ray with bilateral atelectasis.
Normal procalcitonin level.
Blood cultures pending
Monitor closely, would be low threshold for empiric antibiotics for nosocomial/aspiration pneumonia if recurrent fever.
Incentive spirometry.
Increase activity.
Reduce narcotic dose
DVT prophylaxis: Mechanical
Full code
LISA Crow
Anticipated Discharge: 24 - 48 hours
Subjective/Interval History
-
Date of Service: January 31, 2024
Objective Data
-
Labs:
Laboratory Results
01/31/24
04:32
WBC 9.8
Hgb 9.3 L
Hct 28.1 L
Plt Count 241
Sodium 136
Potassium 5.3 H
Chloride 102
Carbon Dioxide 29
BUN 28 H
Creatinine 0.7
Glucose 110 H
Calcium 8.5
Total Bilirubin 0.4
AST 41
ALT 49
Alkaline Phosphatase 221 H
Vital Signs:
Vital Signs
Temp Pulse Resp BP Pulse Ox
98.5 F 94 16 138/88 96
01/31/24 15:00 01/31/24 15:00 01/31/24 15:00 01/31/24 15:00 01/31/24 15:00
I&O
01/30/24 01/31/24 02/01/24
06:59 06:59 06:59
Intake Total 0 / 0 0 / 0
Output Total 1250 / 1250 1450 / 1450
Balance -1250 / -1250 -1450 / -1450
Physical Exam
-
General: Well Developed and No Apparent Distress
HEENT: Normocephalic, Atraumatic and Moist Mucous Membranes
Respiratory: Clear to Auscultation
Cardiac: Regular Rhythm and S1/S2; Negative Murmur, Rub or Gallop
GI: Soft, Nontender, Nondistended and Normal Bowel Sounds; Negative Organomegaly
Rectal: Deferred by Provider
Musculoskeletal: No Clubbing, No Cyanosis and No Edema
Skin: Negative Rash
Neuro: Nonfocal/Grossly Intact
--- NOTE | 2024-01-31 18:44 | PTCARENOTE ---
Instructed patient to inform nursing after next BM.
[2024-01-31 23:00] VITALS: BP 152/91
[2024-02-01] MEDS: TORADOL 30 MG IV ×2 (03:46→10:06)
[2024-02-01] MEDS: DILAUDID 1 MG IV ×6 (03:46→22:41)
[2024-02-01 05:43] LABS: % Basophils 0.4 % (0-2); % Immature Granulocytes 0.2 % (0-0.5); % Lymphocytes 3.8 % (20.5-51.1); % Monocytes 16.2 % (1.7-9.3); % Neutrophils 73.4 % (42.2-75.2); Absolute Eosinophils 0.6 10^3/uL (0-0.7); Absolute Lymphocytes 0.4 10^3/uL (1.2-3.4); Absolute Monocytes 1.5 10^3/uL (0.1-0.6); Absolute Neutrophils 6.7 10^3/uL (1.4-6.5); Hematocrit 27.6 % (39.0-52.0); Hemoglobin 9.1 g/dL (13.0-18.0); Mean Corpuscular Hgb 31.8 pg (27.0-31.0); Mean Corpuscular Volume 96.5 fL (80.0-94.0); Mean Platelet Volume 10.4 fL (7.4-10.4); Nucleated Red Blood Cells % 0 % (-); Platelet Count 252 10^3/uL (130-400); Red Blood Cell Count 2.86 10^6/uL (4.70-6.10); Red Cell Dist. Width 15.4 % (11.5-14.5); White Blood Cell Count 9.2 10^3/uL (4.8-10.8)
[2024-02-01 06:18] LABS: ALT (SGPT) 46 U/L (0-50); AST (SGOT) 38 U/L (17-59); Alkaline Phosphatase 214 U/L (38-126); Blood Urea Nitrogen 32 mg/dl (9-20); Calcium 8.8 mg/dl (8.4-10.2); Carbon Dioxide 27 mmol/L (22-30); Chloride 104 mmol/L (98-107); Estimated Creatinine Clearance 86 ml/min; Glucose 105 mg/dl (70-99); Potassium 5.4 mmol/L (3.5-5.1); Sodium 136 mmol/L (135-145); Total Bilirubin 0.7 mg/dl (0.2-1.3); Total Protein 5.9 g/dl (6.3-8.2); eGFR > 60.00
[2024-02-01 07:00] VITALS: BP 153/106
[2024-02-01] MEDS: MIRALAX PO (08:37)
[2024-02-01] MEDS: SENOKOT-S TUBE (08:38)
--- NOTE | 2024-02-01 14:51 | W.PN.GENERIC ---
Assessment / Plan
-
S/p transhiatal esophagectomy POD # 6
Doing well
UGI showed no evidence of leak
Clear liquid diet started and tolerated well
Will advance diet to full liquid
OOB and ambulate
Possible DC home on Sunday if he continues to do will
Await path
Physician Progress Note
Subjective
Feeling well. Tolerating clear liquid diet. Pain control better
Objective
Vital Signs
Temp Pulse Resp BP Pulse Ox
98.6 F 91 16 153/106 96
02/01/24 07:00 02/01/24 07:00 02/01/24 07:00 02/01/24 07:00 02/01/24 07:00
Lab Results
02/01/24 05:26
02/01/24 05:26
Abd - soft ND NT. Feeding J-tube intact
Neck - Lapaz drain intact but draining prulent fluid (which is old blood he is mobilizing)
[2024-02-01 15:00] VITALS: BP 158/89
--- NOTE | 2024-02-01 15:59 | W.PN.HOSP.TC ---
Today's Communication/Plan
-
Diet been advanced by surgery.
With mild hyperkalemia, hold Toradol and follow BMP.
Assessment / Plan
Assessment / Plan
HPI: 68 years old male with esophageal adenocarcinoma, well-differentiated and diagnosed August 2023.
Esophageal adenocarcinoma clinically and radiologically limited to esophagus
Patient underwent PEG tube placement and chemoradiation treatment.
Patient underwent uneventful esophagectomy on 01/24 with estimated blood loss 150 mL.
Extubated successfully with stable respiratory and hemodynamic status.
NG tube being replaced to surpass anastomosis
IMPRESSION:
Esophageal adenocarcinoma, well-differentiated, clinically and radiologically limited to esophagus.
Status post esophagectomy on 01/24 with estimated blood loss 150 mL.
Recently finished neoadjuvant chemotherapy. Underwent esophagectomy by Dr. Crow on 01/25/[address]
Tobacco use disorder
Hypertension by history not on medications prior to presentation
RBBB
Dyslipidemia
PLAN:
Doing well postoperatively
NG tube removed on 01/29
Esophagogram today with no leak
Diet being advanced from clears to full liquids
Continue PEG tube feeding with Jevity 1.5 and advance to goal rate
Monitor CBC.
Analgesic regimen has been adjusted
Single episode of fever noted on 01/29.
Nontoxic-appearing.
Chest x-ray with bilateral atelectasis.
Normal procalcitonin level.
Blood cultures pending
Monitor closely, would be low threshold for empiric antibiotics for nosocomial/aspiration pneumonia if recurrent fever.
Incentive spirometry.
Increase activity.
Reduce narcotic dose
Hyperkalemia mild with potassium 5.5 on 01/31.
Hold Toradol
Follow BMP
DVT prophylaxis: Mechanical
Full code
LISA Crow
Anticipated Discharge: 24 - 48 hours
Subjective/Interval History
-
Date of Service: February 01, 2024
Objective Data
-
Labs:
Laboratory Results
02/01/24
05:26
WBC 9.2
Hgb 9.1 L
Hct 27.6 L
Plt Count 252
Sodium 136
Potassium 5.4 H
Chloride 104
Carbon Dioxide 27
BUN 32 H
Creatinine 0.7
Glucose 105 H
Calcium 8.8
Total Bilirubin 0.7
AST 38
ALT 46
Alkaline Phosphatase 214 H
Vital Signs:
Vital Signs
Temp Pulse Resp BP Pulse Ox
98.0 F 90 16 158/89 98
02/01/24 15:00 02/01/24 15:00 02/01/24 15:00 02/01/24 15:00 02/01/24 15:00
I&O
01/31/24 02/01/24 02/02/24
06:59 06:59 06:59
Intake Total 0 / 0
Output Total 1450 / 1450
Balance -1450 / -1450
Physical Exam
-
General: Well Developed and No Apparent Distress
HEENT: Normocephalic, Atraumatic and Moist Mucous Membranes
Respiratory: Clear to Auscultation
Cardiac: Regular Rhythm and S1/S2; Negative Murmur, Rub or Gallop
GI: Soft, Nontender, Nondistended and Normal Bowel Sounds; Negative Organomegaly
Rectal: Deferred by Provider
Musculoskeletal: No Clubbing, No Cyanosis and No Edema
Skin: Negative Rash
Neuro: Nonfocal/Grossly Intact
[2024-02-01] MEDS: SENOKOT-S 1 TABLET TUBE (19:59)
[2024-02-01 23:00] VITALS: BP 148/92
[2024-02-02] MEDS: APRESOLINE 10 MG IV (00:32)
[2024-02-02] MEDS: DILAUDID 1 MG IV ×3 (02:13→08:36)
[2024-02-02 07:30] VITALS: BP 132/89
[2024-02-02 08:17] LABS: % Basophils 0.5 % (0-2); % Eosinophils 3.9 % (0-6); % Immature Granulocytes 0.3 % (0-0.5); % Lymphocytes 5.9 % (20.5-51.1); % Monocytes 14.3 % (1.7-9.3); % Neutrophils 75.1 % (42.2-75.2); Absolute Eosinophils 0.3 10^3/uL (0-0.7); Absolute Lymphocytes 0.5 10^3/uL (1.2-3.4); Absolute Monocytes 1.2 10^3/uL (0.1-0.6); Absolute Neutrophils 6.5 10^3/uL (1.4-6.5); Hematocrit 28.4 % (39.0-52.0); Hemoglobin 9.3 g/dL (13.0-18.0); Mean Corp Hgb Conc. 32.7 g/dL (33.0-37.0); Mean Corpuscular Hgb 31.5 pg (27.0-31.0); Mean Corpuscular Volume 96.3 fL (80.0-94.0); Mean Platelet Volume 10.9 fL (7.4-10.4); Nucleated Red Blood Cells % 0 % (-); Platelet Count 315 10^3/uL (130-400); Red Blood Cell Count 2.95 10^6/uL (4.70-6.10); Red Cell Dist. Width 15.3 % (11.5-14.5); White Blood Cell Count 8.7 10^3/uL (4.8-10.8)
[2024-02-02] MEDS: SENOKOT-S 1 TABLET TUBE ×2 (08:37→20:36)
[2024-02-02] MEDS: MIRALAX 17 GRAMS PO (08:37)
[2024-02-02 08:44] LABS: Blood Urea Nitrogen 25 mg/dl (9-20); Calcium 8.7 mg/dl (8.4-10.2); Carbon Dioxide 21 mmol/L (22-30); Chloride 102 mmol/L (98-107); Estimated Creatinine Clearance 101 ml/min; Glucose 93 mg/dl (70-99); Potassium 4.7 mmol/L (3.5-5.1); Sodium 133 mmol/L (135-145); eGFR > 60.00
--- NOTE | 2024-02-02 11:55 | W.PN.HOSP.TC ---
Today's Communication/Plan
-
anti-cough meds
monitor diet tolerance
Assessment / Plan
Assessment / Plan
HPI: 68 years old male with esophageal adenocarcinoma, well-differentiated and diagnosed August 2023.
Esophageal adenocarcinoma clinically and radiologically limited to esophagus
Patient underwent PEG tube placement and chemoradiation treatment.
Patient underwent uneventful esophagectomy on 01/24 with estimated blood loss 150 mL.
Extubated successfully with stable respiratory and hemodynamic status.
NG tube being replaced to surpass anastomosis
IMPRESSION:
Esophageal adenocarcinoma, well-differentiated, clinically and radiologically limited to esophagus.
Status post esophagectomy on 01/24 with estimated blood loss 150 mL.
Recently finished neoadjuvant chemotherapy. Underwent esophagectomy by Dr. Crow on 01/25/[address]
Tobacco use disorder
Hypertension by history not on medications prior to presentation
RBBB
Dyslipidemia
PLAN:
Doing well postoperatively
NG tube removed on 01/29
Esophagogram with no leak
Diet being advanced from clears to full liquids
Diet per FIOR Morrison
off tube feeding
Monitor CBC.
Analgesic regimen has been adjusted
Single episode of fever noted on 01/29.
Nontoxic-appearing.
Chest x-ray with bilateral atelectasis.
Normal procalcitonin level.
Blood cultures pending
Monitor closely, would be low threshold for empiric antibiotics for nosocomial/aspiration pneumonia if recurrent fever.
Incentive spirometry.
Increase activity.
Reduce narcotic dose
Hyperkalemia mild with potassium 5.5 on 01/31.
Hold Toradol
Follow BMP
Start anticough meds
DVT prophylaxis: Mechanical/encourage ambulation
Full code
DW Dr Crow
Anticipated Discharge: > 48 hours
Subjective/Interval History
-
Date of Service: February 02, 2024
Walking around hallway
States of severe cough at times
Objective Data
-
Labs:
Laboratory Results
02/02/24
06:14
WBC 8.7
Hgb 9.3 L
Hct 28.4 L
Plt Count 315 D
Sodium 133 L
Potassium 4.7
Chloride 102
Carbon Dioxide 21 L
BUN 25 H
Creatinine 0.6 L
Glucose 93
Calcium 8.7
Vital Signs:
Vital Signs
Temp Pulse Resp BP Pulse Ox
98.5 F 89 20 132/89 97
02/02/24 07:30 02/02/24 07:30 02/02/24 07:30 02/02/24 07:30 02/02/24 07:30
I&O
02/01/24 02/02/24 02/03/24
06:59 06:59 06:59
Intake Total 180 / 180
Output Total 1200 / 1200
Balance -1020 / -1020
Physical Exam
-
General: No Apparent Distress
HEENT: Normocephalic, Atraumatic, Moist Mucous Membranes and Other (Left-sided neck dressing noted)
Respiratory: Clear to Auscultation and Other (Left chest wall dressing noted.)
Cardiac: Regular Rhythm and S1/S2; Negative Murmur, Rub or Gallop
GI: Soft, Nontender, Nondistended, Normal Bowel Sounds, Peg Tube and Other (Midline scar with christy noted. No erythema or drainage.); Negative Organomegaly
Rectal: Deferred by Provider
Musculoskeletal: No Clubbing, No Cyanosis and No Edema
Skin: Negative Rash
Neuro: Awake, AO x 3, No Motor Deficits and Nonfocal/Grossly Intact
Psych: Calm
--- NOTE | 2024-02-02 12:56 | W.PN.GENERIC ---
Assessment / Plan
-
S/p Transhiatal esophagectomy POD#8
Stable
Continue full liquid, which he will continue for another week or two
Dec TF to /2 (TF for 7 hours from 14 hours)
Will change IV med to PO, which should be taken with pudding like food to help the pills to pass the anastomosis with less trauma
OOB to chair
I will remove his neck drain in my office
Possible DC later today or tomorrow
Physician Progress Note
Subjective
Feeling better. No N/v. Tolerating full liquid diet.
Objective
Vital Signs
Temp Pulse Resp BP Pulse Ox
98.5 F 89 20 132/89 97
02/02/24 07:30 02/02/24 07:30 02/02/24 07:30 02/02/24 07:30 02/02/24 07:30
Lab Results
02/02/24 06:14
02/02/24 06:14
Neck incision intact. Ciera drain with prulent fluid.
Abdominal incision CDI. No evidence of infection.
[2024-02-02] MEDS: ROBITUSSIN 200 MG TUBE (12:59)
[2024-02-02] MEDS: DILAUDID 2 MG PO ×3 (12:59→20:36)
[2024-02-02 15:00] VITALS: BP 139/81
[2024-02-02] MEDS: ROBITUSSIN TUBE ×3 (17:12→22:45)
[2024-02-02 23:00] VITALS: BP 126/86
[2024-02-03] MEDS: DILAUDID 2 MG PO ×2 (00:16→05:21)
[2024-02-03] MEDS: SENOKOT-S TUBE (08:36)
[2024-02-03] MEDS: ROBITUSSIN TUBE (08:36)
[2024-02-03] MEDS: MIRALAX PO (08:36)
[2024-02-03 08:50] VITALS: BP 139/91
--- NOTE | 2024-02-03 11:14 | W.DS.TRANS ---
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
-
Discharge Instructions:
Sleep Apnea Risk Low
Discharge Diagnosis/Procedures Esophageal cancer
Diet As tolerated
Additional Diets soft diet
Activity As tolerated,No strenuous activity
Driving Restrictions Not until seen by your Dr
Bathing Restrictions OK to Shower
Instructions:
Stand-Alone Forms:
Changes to Home Medications: No
Discharge Medications:
DC Medications w/original date entered in [facility]
No Meds [No Current Medications] 01/22/24
Home Medication Changes
Pending Results: No
--- NOTE | 2024-02-03 11:33 | W.PN.HOSP.TC ---
Today's Communication/Plan
-
DC
Diet per primary team
Assessment / Plan
Assessment / Plan
HPI: 68 years old male with esophageal adenocarcinoma, well-differentiated and diagnosed August 2023.
Esophageal adenocarcinoma clinically and radiologically limited to esophagus
Patient underwent PEG tube placement and chemoradiation treatment.
Patient underwent uneventful esophagectomy on 01/24 with estimated blood loss 150 mL.
Extubated successfully with stable respiratory and hemodynamic status.
NG tube being replaced to surpass anastomosis
IMPRESSION:
Esophageal adenocarcinoma, well-differentiated, clinically and radiologically limited to esophagus.
Status post esophagectomy on 01/24 with estimated blood loss 150 mL.
Recently finished neoadjuvant chemotherapy. Underwent esophagectomy by Dr. Crow on 01/25/[address]
Tobacco use disorder
Hypertension by history not on medications prior to presentation
RBBB
Dyslipidemia
PLAN:
Doing well postoperatively
NG tube removed on 01/29
Esophagogram with no leak
Diet being advanced from clears to full liquids
Diet per FIOR Morrison
Monitor CBC.
Analgesic regimen has been adjusted
Outpatient follow-up for chest wall catheter removal.
Single episode of fever noted on 01/29.
Nontoxic-appearing.
Chest x-ray with bilateral atelectasis.
Normal procalcitonin level.
Blood cultures pending
Monitor closely, would be low threshold for empiric antibiotics for nosocomial/aspiration pneumonia if recurrent fever.
Incentive spirometry.
Increase activity.
Reduce narcotic dose
Continue remains afebrile since initial episodes.
Hyperkalemia mild with potassium 5.5 on 01/31.
Resolved.
Start anticough meds
DVT prophylaxis: Mechanical/encourage ambulation
Full code
Discussed with spouse at bedside in detail. States going home today.
Anticipated Discharge: Today
Subjective/Interval History
-
Date of Service: February 03, 2024
States cough has improved
Tolerating liquid
Objective Data
-
Vital Signs:
Vital Signs
Temp Pulse Resp BP Pulse Ox
97.9 F 72 20 139/91 96
02/03/24 08:50 02/03/24 08:50 02/03/24 08:50 02/03/24 08:50 02/03/24 08:50
I&O
02/02/24 02/03/24 02/04/24
06:59 06:59 06:59
Intake Total 180 / 180 120 / 120
Output Total 1200 / 1200 200 / 200
Balance -1020 / -1020 120 / 120 -200 / -200
Physical Exam
-
General: No Apparent Distress
HEENT: Normocephalic, Atraumatic, Moist Mucous Membranes and Other (Left-sided neck dressing noted)
Respiratory: Clear to Auscultation and Other (Left chest wall dressing noted.)
Cardiac: Regular Rhythm and S1/S2; Negative Murmur, Rub or Gallop
GI: Soft, Nontender, Nondistended, Normal Bowel Sounds, Peg Tube and Other (Midline scar with christy noted. No erythema or drainage.); Negative Organomegaly
Rectal: Deferred by Provider
Musculoskeletal: No Clubbing, No Cyanosis and No Edema
Skin: Negative Rash
Neuro: Awake, AO x 3, No Motor Deficits and Nonfocal/Grossly Intact
Psych: Calm
--- NOTE | 2024-02-03 16:36 | CM ---
Patient with Hx Esophageal adenocarcinoma who is s/p esophagectomy on 01/24. Full liquid diet. Jevity tube feeds. PT recommends HH. OT; No skilled OT needed.
Messages with Dr Crow- he wrote script for [facility] to resume enteral feeds as prior to hospitalization, and he faxed it to [phone].
CM called [facility]- no one is in the office today.
CM left message for Alee, [facility] to check fax tomorrow for script.
Met with patient; he was provided update that Dr Crow sent script to [facility] to resume his tube feeds at home. Patient states he has adequate tube feeds/supplies for d/c today. The patient says he feels ready to go home today. IMM completed.
He is aware that [facility] is setup for him and plans on SOC tomorrow. His sister will provide transport home today.
Plan home today with resumption [facility] for tube feeds, with [facility].
== END 2024-02-03 14:47 | disposition home health service (06) | DRG 328 ==
LOC: 4 WEST ACU 06:15
PROVIDERS: Internal Medicine; Nurse Practitioner Family; Nurse Practitioner Gerontology; ADMITTING PHYSICIAN Surgery; CONSULT PHYSICIAN Internal Medicine Critical Care Medicine; FAMILY PHYSICIAN Nurse Practitioner Adult Health
PROC: 0DB30ZZ Excision of Lower Esophagus, Open Approach (ICD-10-PCS; 2024-01-25)
DX: C15.5 Malignant neoplasm of lower third of esophagus (principal); E78.5 Hyperlipidemia, unspecified; I45.10 Unspecified right bundle-branch block; I10 Essential (primary) hypertension; K21.9 Gastro-esophageal reflux disease without esophagitis; E87.5 Hyperkalemia; Z11.52 Encounter for screening for COVID-19; Z79.899 Other long term (current) drug therapy; Z87.891 Personal history of nicotine dependence; Z92.3 Personal history of irradiation; Z92.21 Personal history of antineoplastic chemotherapy; Z93.1 Gastrostomy status
CPT/HCPCS: 88307; 88309; 88332; 36415; 71045; 74240; 80048; 80053; 81003; 83605; 83735; 84100; 84145; 85025; 85027; 85610; 85730; 86850; 86900; 86901; 86920; 87040; 87502; 87811; 88331; 88342; 93005; 97116; 97163; 97167; 97530; 97535; J3480

== ENCOUNTER → 2024-07-10 08:22 | Outpatient (REF) | payer OTHER, SELFPAY | LOC: PET 08:22 | PROVIDERS: ATTENDING PHYSICIAN Nurse Practitioner Primary Care | DX: C15.5 Malignant neoplasm of lower third of esophagus (principal) | CPT/HCPCS: 78815; A9552 ==

== ENCOUNTER → 2024-09-15 10:03 | Outpatient (REF) | payer OTHER, SELFPAY | LOC: RAD 10:03 | PROVIDERS: ATTENDING PHYSICIAN Surgery; FAMILY PHYSICIAN Nurse Practitioner Adult Health | DX: K22.2 Esophageal obstruction (principal) | CPT/HCPCS: 74221 ==

== ENCOUNTER → 2024-09-25 09:02 | Outpatient (REF) | payer OTHER, SELFPAY | LOC: RCS 09:02 | PROVIDERS: ATTENDING PHYSICIAN Internal Medicine Cardiovascular Disease; FAMILY PHYSICIAN Nurse Practitioner Adult Health | DX: C15.5 Malignant neoplasm of lower third of esophagus (principal); Z92.3 Personal history of irradiation; I35.8 Other nonrheumatic aortic valve disorders | CPT/HCPCS: 93306; 93356 ==

== ENCOUNTER → 2024-12-16 08:08 | Outpatient (REF) | payer OTHER, SELFPAY | LOC: HWRAD 08:08 | PROVIDERS: ATTENDING PHYSICIAN Nurse Practitioner Adult Health | DX: R10.32 Left lower quadrant pain (principal); R10.31 Right lower quadrant pain | CPT/HCPCS: 76882 ==

== ENCOUNTER → 2025-01-05 15:06 | Outpatient (REF) | payer OTHER, SELFPAY | LOC: RAD 15:06 | PROVIDERS: ATTENDING PHYSICIAN Nurse Practitioner Adult Health | DX: C15.9 Malignant neoplasm of esophagus, unspecified (principal); R10.31 Right lower quadrant pain; R10.9 Unspecified abdominal pain; R10.32 Left lower quadrant pain | CPT/HCPCS: 74177; Q9967 ==

== ENCOUNTER → 2025-01-08 07:52 | Outpatient (REF) | payer OTHER, SELFPAY | LOC: PET 07:52 | PROVIDERS: ATTENDING PHYSICIAN Internal Medicine Hematology & Oncology | DX: C15.5 Malignant neoplasm of lower third of esophagus (principal) | CPT/HCPCS: 78815; A9552 ==

== ENCOUNTER 2025-04-25 08:01 | Emergency (ER) | payer OTHER, SELFPAY ==
[2025-04-25 08:11] VITALS: BP 146/97
--- NOTE | 2025-04-25 08:45 | ED.GENMED ---
History of Present Illness
<Laura Jones DO, Resident - Last Filed: 04/25/25 13:06>
General
Chief Complaint: Catheter/Tube Problem
Source: patient
Exam Limitations: none
Time Seen by Provider: 04/25/25 08:17
Nursing documentation reviewed up to this point in time: agreed with
History of Present Illness
History of Present Illness:
Patient is a 70 year old male with PMH of esophageal cancer s/p chemorads and esophagectomy and J tube placement in 2023. Patient present with a leaking and broken J tube cap.
Past History
<Laura Jones DO, Resident - Last Filed: 04/25/25 13:06>
Past History
ED Past Medical History: None
ED Past Surgical History: None
Social History
Tobacco: Smoker (Pack daily)
Alcohol: None
Drug: Marijuana
Personal: Other (Common law marrage)
Living: with family
Employment: Employed
Review of Systems
<Laura Jones DO, Resident - Last Filed: 04/25/25 13:06>
Review of Systems
Allergies reviewed?: Yes
All Other Systems: ROS reviewed and negative except as documented in HPI and ROS
Constitutional: Reports no symptoms
EENT: Reports no symptoms
Respiratory: Reports no symptoms
Cardiac: Reports no symptoms
ABD/GI: Reports bloody stools and other (broken J tube)
: Reports no symptoms
Musculoskeletal: Reports no symptoms
Skin: Reports no symptoms
Neurological: Reports no symptoms
Endocrine: Reports no symptoms
Hematologic/Lymphatic: Reports no symptoms
Psychiatric: Reports no symptoms
Phy Exam
<Laura Jones DO, Resident - Last Filed: 04/25/25 13:06>
General Physical Exam
General Presentation: well appearing and no apparent distress
General age: appears stated age
General Skin: warm and dry
Gastrointestinal Exam
Gastrointestinal Exam: normal bowel sounds, non tender and other (J-tube in place. End Of J-tube broken.)
Neurological Exam
Neurological Exam: alert and oriented x3
Skin Exam
Skin Exam: normal color and warm/dry
Psychiatric Exam
Psychiatric Exam: normal mood/affect
Course
<Laura Jones DO, Resident - Last Filed: 04/25/25 13:06>
Vital Signs
Initial and Last Documented VS:
Initial Vital Signs
Temp Pulse Resp BP Pulse Ox
36.9 C 59 18 146/97 97
04/25/25 08:11 04/25/25 08:11 04/25/25 08:11 04/25/25 08:11 04/25/25 08:11
Last Documented Vital Signs
Temp Pulse Resp BP Pulse Ox
36.9 C 60 18 135/80 97
04/25/25 08:11 04/25/25 12:53 04/25/25 12:53 04/25/25 12:53 04/25/25 12:53
<Orlando Burnett DO - Last Filed: 04/25/25 13:37>
Vital Signs
Initial and Last Documented VS:
Initial Vital Signs
Temp Pulse Resp BP Pulse Ox
36.9 C 59 18 146/97 97
04/25/25 08:11 04/25/25 08:11 04/25/25 08:11 04/25/25 08:11 04/25/25 08:11
Last Documented Vital Signs
Temp Pulse Resp BP Pulse Ox
36.9 C 60 18 135/80 97
04/25/25 08:11 04/25/25 12:53 04/25/25 12:53 04/25/25 12:53 04/25/25 12:53
<Laura Jones DO, Resident - Last Filed: 04/25/25 13:06>
MDM/Problems Addressed
Differential Diagnosis Includes:
Broken J-tube
MDM/Problems Addressed:
Spoke with IR. Sending tech down to assess if possible to replace here. Unable to replace correct piece of J tube here. Patient will follow up with Dr. Evaristo Crow.
<Laura Jones DO, Resident - Last Filed: 04/25/25 13:06>
*Pulse Oximetry
SaO2: 97
Oxygen Mode of Delivery: Room air
Patient hypoxic: no
*Critical Care Note
Total Time (30-74mins, 75-104mins- exclusive of procedures): Not Applicable
ED Attending Note
<Laura Jones DO, Resident - Last Filed: 04/25/25 13:06>
-
Portions of this chart may have been created with voice recognition software.� Occasional wrong word or��sound alike� substitutions may have occurred due to the inherent limitations of voice recognition software.
<Orlando Burnett DO - Last Filed: 04/25/25 13:37>
ED Attending Note
Patient seen and examined by attending physician: Yes
I performed a history and physical exam of patient and discussed management with resident, I reviewed resident's note and agree with documented findings and plan of care.: Yes
ED Attending Note:
I evaluated patient at bedside. The patient does have a broken connector piece to the J-tube. I am contacting interventional radiology, Dr. Watkins for their input. IR did not have the correct adapter. I contacted GI who recommended IR for
replacement of the tube however IR did not feel that this is necessary which I agree with. I ultimately did get a hold of Dr. Evaristo Crow he will see the patient on Sunday. He also had a different type of adapter/connector that did not lock into place
but was able to tape into place with adequate positioning. He is to follow-up with his surgeon on Sunday.
Discharge Plan
Departure
Patient Disposition: Home (Routine Discharge)
Date of Disposition: 04/25/25
Time of Disposition: 12:46
Patient with high blood pressure during this ER visit?: Yes
Discharge Problem:
Jejunostomy tube leak
Prescriptions:
No Action
No Current Medications
0
Referrals:
Evaristo Crow MD [Active, Surgical]
UNKNOWN - PT DOES,NOT KNOW [Family Provider]
Activity Restrictions/Additional Instructions:
I notified Dr. Evaristo Crow. He tells me that you should go to his office (you do not need to call first) on Sunday at the [facility]. Return here if worse or other concerns.
Interventions
Interventions:
*Risk Screen - Suicide Last Done: 04/25/25 08:11
*General Assessment Last Done: 04/25/25 08:11
*Neglect/Abuse Screening Last Done: 04/25/25 08:11
*ED- Fall Risk Assessment Last Done: 04/25/25 09:15
*ED COVID-19 Vaccine History Last Done: 04/25/25 09:15
*Nursing Disposition Last Done: 04/25/25 12:54
OC-Yaktiy-Vyfadmhtlq Assessment Last Done: 04/25/25 09:14
ED-Male Genitourinary Assessment Last Done: 04/25/25 09:15
Discharge Date and Time
Discharge Date/Time: 04/25/25 12:54
Print Language: CITIZEN OF [place]
[2025-04-25 09:14] VITALS: BMI 21.3
--- NOTE | 2025-04-25 12:28 | PN.IRAD.UPD ---
Update Note - IRAD
- -
went bedside to assess patient's broken connector piece(s) which we do not have, Dr. Watkins spoke with ER physician/Tristin and determined to wait until Sunday
[2025-04-25 12:53] VITALS: BP 135/80
== END 2025-04-25 12:54 | disposition home or self-care (01) ==
LOC: EMR 08:01
PROVIDERS: EMERGENCY PHYSICIAN Emergency Medicine
DX: Z46.59 Encounter for fitting and adjustment of other gastrointestinal appliance and device (principal); F17.200 Nicotine dependence, unspecified, uncomplicated; C15.9 Malignant neoplasm of esophagus, unspecified; Z90.49 Acquired absence of other specified parts of digestive tract
CPT/HCPCS: 99283

== ENCOUNTER → 2025-08-12 11:57 | Outpatient (REF) | payer OTHER, SELFPAY | LOC: PET 11:57 | PROVIDERS: ATTENDING PHYSICIAN Internal Medicine Hematology & Oncology | DX: C15.5 Malignant neoplasm of lower third of esophagus (principal) | CPT/HCPCS: 78815; A9552 ==